=== PATIENT | female | born 1960 | race Caucasian/White ===

== ENCOUNTER 2017-11-24 13:30 | Outpatient (RCR) | payer OTHER, SELFPAY | END 2017-11-24 23:59 | LOC: PT.CARL 13:30 | PROVIDERS: Referring Provider Orthopaedic Surgery; Visit Provider Orthopaedic Surgery | DX: M54.5 Low back pain (principal) | CPT/HCPCS: 97110; 97162 ==

== ENCOUNTER 2017-11-26 11:30 | Outpatient (RCR) | payer OTHER, SELFPAY | END 2017-11-26 13:00 | LOC: PT 11:30 | PROVIDERS: Visit Provider Orthopaedic Surgery | DX: M54.5 Low back pain (principal) | CPT/HCPCS: 97110 ==

== ENCOUNTER → 2017-12-11 12:54 | Outpatient (CLI) | payer OTHER, SELFPAY ==
--- NOTE | 2017-12-11 12:58 | MR_ITS ---
MR lumbar spine wo con, MR 3-d myelogram/MRCP HISTORY: Low back pain with right-sided sciatica. Pain going down right leg ITS.REASON: LOW BACK PAIN WITH RT SCIATICA ORDERING PHYSICIAN: Arnoldo Peterson PATIENT AGE: 57 years COMPARISON: None TECHNIQUE: Standard multiplanar multiecho sequences are performed without contrast. 3-D MIP and myelographic images are also rendered and reviewed FINDINGS: There is normal alignment. The spinal cord ends at the T12-L1 level. There is mild degenerative disc disease at T11-T12. T12-L1, L1-L2, and L2-L3 have an unremarkable appearance. L3-L4: Minimal facet hypertrophic change on the right with minimal right lateral recess narrowing. L4-L5: Minimal bulging disc with mild facet and ligamentum flavum hypertrophy. There is minimal anterolisthesis of L4 on L5 of approximately 2 mm. L5-S1: Mild degenerative disc disease with disc desiccation and decrease in the disc height. Mild facet hypertrophic change with mild bilateral foraminal narrowing somewhat greater on the left. No disc herniation or canal stenosis. Incidental note is made of mild prominence of the renal pelves on both sides slightly greater on the right with a small right exophytic renal cyst. There is a small Tarlov cyst at the S2 level measuring 9 mm. IMPRESSION: Mild lumbar spondylosis as detailed at each level above. Please see above for detailed description. No disc herniation or canal stenosis or obvious neural impingement.
== END ==
PROVIDERS: Family Provider Family Medicine; PCP Nurse Practitioner Family; Visit Provider Orthopaedic Surgery
DX: M54.41 Lumbago with sciatica, right side (principal)
CPT/HCPCS: 72148; 76376

== ENCOUNTER → 2018-06-11 09:08 | Outpatient (CLI) | payer OTHER, SELFPAY ==
--- NOTE | 2018-06-11 09:09 | MM_ITS ---
MM Dig screening mamm BI w/CAD CAD Screening COMPARISON: Digital mammograms with CAD 04/17/2017 and 03/14/2016 INDICATION: There is a history of breast cancer patient maternal aunt diagnosed after menopause. TECHNIQUE: Standard CC and MLO images were obtained. R2 CAD reviewed. FINDINGS: The breasts are closed primarily of fat with very minimal scattered fibro-glandular densities in each breast. There is minimal arterial calcification right breast. There is no suspicious lesion in either breast and there are no suspicious microcalcifications. IMPRESSION: Fatty type breast parenchyma with no suspicious lesion seen BI-RADS Category: 2 Benign Finding(s) RECOMMENDED FOLLOW-UP: 1YR - 1 YEAR FOLLOW-UP (A letter has been sent to the patient regarding results of the study.)
== END ==
PROVIDERS: Family Provider Family Medicine; PCP Nurse Practitioner Family; Visit Provider Nurse Practitioner Family
DX: Z12.31 Encounter for screening mammogram for malignant neoplasm of breast (principal)
CPT/HCPCS: 77067

== ENCOUNTER → 2018-08-10 06:46 | Outpatient (CLI) | payer OTHER, SELFPAY ==
--- NOTE | 2018-08-10 06:48 | NM_ITS ---
History and Indications: Obesity, hypertension, family history, chest pain and shortness of breath Procedure: Patient received a 0.4 mg of intravenous Lexiscan, resting heart rate was 58 bpm resting blood pressure 200/120, with Lexiscan maximum heart rate achieved was 82 bpm which is less than 85% of the maximum predicted heart rate and a blood pressure was 182/106. With Lexiscan patient abdomen shortness of breath and headache. Electrocardiogram: Resting echocardiogram showed sinus bradycardia, with Lexiscan there is less than 1.[address] segment depression noted from the baseline EKG. The EKG portion of the Lexiscan Myoview is nondiagnostic. Cardiac stress and resting SPECT images: Cardiac stress and resting SPECT images were obtained using technetium 99 Myoview 31.7 mCi at stress 10.3 mCi at rest. Gated SPECT further analysis of segmental wall motion and calculation of the ejection fraction also done. Cardiac stress and rest SPECT images show uniform myocardial activity without any segmental perfusion abnormality, computer ejection fraction is 50% with no regional wall motion abnormality, right ventricle is normal size and contractility. Conclusion: 1. The EKG portion of the Lexiscan Myoview is nondiagnostic. 2. No scintigraphic evidence of reversible ischemia seen, computer derived ejection fraction is 50% with no regional wall motion abnormality, right ventricle is normal size and contractility. 3. Normal Lexiscan Myoview study.
--- NOTE | 2018-08-10 09:44 | HMH.ITSHM ---
LISINOPRIL SYNTHROID OXYCODONE CARVEDILOL
== END ==
PROVIDERS: Family Provider Family Medicine; PCP Nurse Practitioner Family; Visit Provider Internal Medicine
DX: R94.31 Abnormal electrocardiogram [ECG] [EKG] (principal); R42 Dizziness and giddiness
CPT/HCPCS: 78452; 93017; A9502; J2785

== ENCOUNTER → 2018-08-11 14:14 | Outpatient (CLI) | payer OTHER, SELFPAY ==
--- NOTE | 2018-08-11 14:15 | CA_ITS ---
PROCEDURE: 2-D M-mode and color Doppler study INDICATIONS FOR THE TEST: Chest pain+ COPD Heart Murmur+ Tobacco Smoking Palpitations+ Fatigue Syncope Edema Hypertension+Diabetes Mellitus Rheumatic Fever SOB WOLFE+Obesity Hyperlipidemia Family History HD+ Additional History abn ekg, dizziness PATIENT INFORMATION HEIGHT: 63 WEIGHT:250 GENDER: Female B/P:186/90 2-D/M-MODE INTERPRETATION: 2-D MEASUREMENTS OBSERVED VALUES IN CMS Right Ventricular Dimension (RVDd) 2.9 Interventricular Septum (Thickness)(IVsd) 1.0 Left Ventricular Internal Dimensions(LVIDd) 4.9 Left Ventricular Posterior Wall (Thickness)(LVPWd) 1.5 Aortic Root 2.7 Aortic Cusp Separation 1.6 Left Atrial Dimensions (LAD) 4.6 2D 1. Left atrium is mildly enlarged, left ventricle is normal size, there is mild qualitative concentric left ventricular hypertrophy, visually estimated ejection fraction 55% with no regional wall motion abnormality. 2. The right atrium and right ventricle are mildly enlarged with normal contractility. 3. The aortic valve is minimally thickened and fibrosed. 4. Mitral and tricuspid valve are grossly normal. 5. The pulmonic valve is poorly visualized. 6. There is small circumferential pericardial effusion noted. DOPPLER INTERROGATION: Doppler interrogation of the aortic, mitral and tricuspid valvular presence of mild mitral and tricuspid regurgitation, tricuspid regurgitation jet velocity is insufficient for acquisition of the right ventricular systolic pressure, grade 1 diastolic dysfunction seen without tissue Doppler evidence of raised left atrial pressure. CONCLUSION: 1. Mildly enlarged left atrium, normal left ventricular size, mild concentric left ventricular hypertrophy, visually estimated ejection fraction 55% with no regional wall motion abnormality, grade 1 diastolic dysfunction seen without tissue Doppler evidence of raised left atrial pressure. 2. Mildly enlarged right ventricle with normal contractility. 3. Mild mitral and tricuspid regurgitation 4. Small circumferential pericardial effusion noted.
== END ==
PROVIDERS: Family Provider Family Medicine; PCP Nurse Practitioner Family; Visit Provider Internal Medicine
DX: R42 Dizziness and giddiness (principal)
CPT/HCPCS: 93306

== ENCOUNTER → 2019-03-07 15:11 | Outpatient (CLI) | payer OTHER, SELFPAY ==
[2019-03-07 15:19] LABS: Microscopic, Urine URINE MICROSCOPIC (MICROSCOPIC)
--- NOTE | 2019-03-07 15:30 | US_ITS ---
US Kidney CLINICAL INDICATION: ITS.REASON: NEPHROLITHIASIS ORDERING PHYSICIAN: Diego Jones PATIENT AGE: 58 years Comparison: None FINDINGS: The right kidney is 9 x 4 x 6 cm. No hydronephrosis. There is mild cortical thinning. A 1 cm cyst is present in the lower pole. There is minimal amount of perinephric fluid. The left kidney is 9 x 5 x 6 cm and has an unremarkable appearance. No hydronephrosis. IMPRESSION: Mild cortical thinning of the right kidney with small right renal cyst and minimal amount of perinephric fluid on the right No hydronephrosis
[2019-03-07 15:32] LABS: Appearance,Urine SL CLOUDY (Clear); Bilirubin,Urine Negative (Negative); Blood, Urine Negative (Negative); Color,Urine YELLOW (Yellow); Glucose,Urine (UA) Negative (Negative); Ketones,Urine Negative (Negative); Leukocyte Esterase,Urine Negative (Negative); Nitrate,Urine Negative (Negative); Protein,Urine Negative (Negative); Specific Gravity, Urine 1.015 (1.005-1.030); Urobilinogen,Urine 0.2 EU/dl (0.2)
[2019-03-07 15:58] LABS: Bacteria,Urine 2+ /lpf; Squamous Epithelial Cell,Urine 20-50 #/hpf (0-5)
[2019-03-07 17:28] LABS: Albumin Level 4.1 gm/dL (3.4-5.0); Anion Gap 16.3 mEq/L (5-15); Blood Urea Nitrogen 18 mg/dL (7-18); Calcium 9.4 mg/dL (8.5-10.1); Carbon Dioxide 23 mmol/L (21.0-32.0); Chloride 104 mmol/L (98-107); Creatinine,Serum 1.29 mg/dL (0.55-1.02); Estimated Glomerular Filt Rate 42 ml/min (>60); GFR (African American) 51 ML/MIN (>60); Glucose 86 mg/dL (74-106); Phosphorous 3.7 mg/dL (2.4-4.9); Potassium 4.3 mmoL/L (3.5-5.1); Sodium 139 mmol/L (136-145); Uric Acid 5.1 mg/dL (2.6-7.2)
[2019-03-09 12:44] LABS: Vitamin D 25 Hydroxy 18.9 ng/mL (30.0-100.0)
[2019-03-09 16:08] LABS: Parathyroid Hormone Intact 106 pg/mL (15-65)
== END ==
PROVIDERS: PCP Family Medicine; Visit Provider Internal Medicine Nephrology
DX: N20.0 Calculus of kidney (principal); N18.3 Chronic kidney disease, stage 3 (moderate); N39.0 Urinary tract infection, site not specified
CPT/HCPCS: 36415; 76770; 80069; 81001; 82652; 83970; 84550; 87086

== ENCOUNTER → 2019-07-15 12:18 | Outpatient (CLI) | payer OTHER, SELFPAY ==
[2019-07-15 12:21] LABS: Microscopic, Urine URINE MICROSCOPIC (MICROSCOPIC)
[2019-07-15 12:39] LABS: Basophils % 0.4 % (0.1-2.0); Eosinophils # 0.1 K/mm3 (0.0-0.4); Eosinophils % 1.8 % (0.1-12.0); Hematocrit 38.9 % (37.0-47.0); Hemoglobin 12.5 g/dL (12.2-16.2); Lymphocytes # 2.5 K/mm3 (0.7-4.5); Lymphocytes % 37.7 % (10-50); Mean Corpuscular HGB Conc 32.2 g/dL (31.8-35.4); Mean Corpuscular Hemoglobin 28.8 pg (27.0-31.2); Mean Corpuscular Volume 89.3 fl (81-99); Mean Platelet Volume 8.1 fl (7.4-10.4); Monocytes # 0.5 K/mm3 (0.1-1.0); Monocytes % 8.1 % (1.7-9.3); Neutrophils # 3.4 K/mm3 (1.8-7.8); Platelet Count 329 K/mm3 (142-424); Red Blood Count 4.35 M/mm3 (4.20-5.40); Red Cell Distribution Width 14.4 % (11.5-17.5); White Blood Count 6.5 K/mm3 (4.8-10.8)
[2019-07-15 15:07] LABS: Albumin Level 3.8 gm/dL (3.4-5.0); Anion Gap 13.3 mEq/L (5-15); Blood Urea Nitrogen 11 mg/dL (7-18); Calcium 9.2 mg/dL (8.5-10.1); Carbon Dioxide 24 mmol/L (21.0-32.0); Chloride 106 mmol/L (98-107); Creatinine,Serum 1.59 mg/dL (0.55-1.02); Estimated Glomerular Filt Rate 33 ml/min (>60); GFR (African American) 40 ML/MIN (>60); Glucose 97 mg/dL (74-106); Potassium 4.3 mmoL/L (3.5-5.1); Sodium 139 mmol/L (136-145)
[2019-07-15 15:29] LABS: Appearance,Urine CLEAR (Clear); Bilirubin,Urine Negative (Negative); Blood, Urine Negative (Negative); Color,Urine YELLOW (Yellow); Glucose,Urine (UA) Negative (Negative); Ketones,Urine Negative (Negative); Leukocyte Esterase,Urine Negative (Negative); Nitrate,Urine Negative (Negative); PH,Urine 5.5 (5.0-8.5); Protein,Urine Negative (Negative); Specific Gravity, Urine >= 1.030 (1.005-1.030); Urobilinogen,Urine 0.2 EU/dl (0.2)
[2019-07-15 15:57] LABS: Creatinine,Urine Random 323 mg/dL (20-320); Total Protein,Urine Random 26.1 mg/dL (0.0-11.9)
[2019-07-15 16:30] LABS: Bacteria,Urine Trace /lpf; Squamous Epithelial Cell,Urine Occasional #/hpf (0-5)
== END ==
PROVIDERS: Visit Provider Hospitalist
DX: N18.3 Chronic kidney disease, stage 3 (moderate) (principal)
CPT/HCPCS: 36415; 80069; 81001; 82570; 84155; 85025

== ENCOUNTER → 2019-07-26 10:07 | Outpatient (CLI) | payer OTHER, SELFPAY ==
--- NOTE | 2019-07-26 10:11 | MM_ITS ---
PROCEDURE: MM DIG SCREENING MAMM BI W/CAD Patient Age:58Y CLINICAL INDICATION: SCREENING Routine screening mammogram. 58-year-old. No hormones but no complaints Family history: Paternal aunt with breast cancer COMPARISON: [facility] DIG MAMM-SCREEN NEVA from 03/14/2016 [facility] DIG MAMM-SCREEN NEVA W/CAD from 04/17/2017 [facility] MM Dig screening mamm BI w/CAD from 06/11/2018 TECHNIQUE: Standard CC and MLO images were obtained. R2 CAD reviewed. Additional cc and MLO views performed in order to image entire breast bilateral FINDINGS: Low-density. Generalized fatty replacement but no new areas of concern. No dominant mass. No new suspicious mass. No suspicious calcifications. Minimal vascular calcifications developing bilateral IMPRESSION: Stable bilateral mammogram . Bilateral follow-up 1 year recommended . Low-density breast BI-RAD Category: 1 Negative FOLLOW-UP: 1YR 1 Year Follow-up (A letter has been sent to the patient regarding results of the study.) Dictated by: Gabe Medina MD 07/31/2019 21:07 Electronically signed by Gabe Medina MD in [place] 07/31/2019 21:07
== END ==
PROVIDERS: PCP Family Medicine; Visit Provider Nurse Practitioner Family
DX: Z12.31 Encounter for screening mammogram for malignant neoplasm of breast (principal)
CPT/HCPCS: 77067

== ENCOUNTER → 2019-08-18 10:51 | Outpatient (CLI) | payer OTHER, SELFPAY ==
[2019-08-18 10:53] LABS: Microscopic, Urine URINE MICROSCOPIC (MICROSCOPIC)
[2019-08-18 11:28] LABS: Appearance,Urine CLEAR (Clear); Bilirubin,Urine Negative (Negative); Blood, Urine Negative (Negative); Color,Urine YELLOW (Yellow); Glucose,Urine (UA) Negative (Negative); Ketones,Urine Negative (Negative); Leukocyte Esterase,Urine 1+ (Negative); Nitrate,Urine Negative (Negative); Protein,Urine Negative (Negative); Specific Gravity, Urine 1.015 (1.005-1.030); Urobilinogen,Urine 0.2 EU/dl (0.2)
[2019-08-18 11:56] LABS: Bacteria,Urine Trace /lpf
[2019-08-18 12:26] LABS: Albumin Level 3.6 gm/dL (3.4-5.0); Anion Gap 13.6 mEq/L (5-15); Blood Urea Nitrogen 12 mg/dL (7-18); Calcium 9.2 mg/dL (8.5-10.1); Carbon Dioxide 25 mmol/L (21.0-32.0); Chloride 105 mmol/L (98-107); Creatinine,Serum 1.17 mg/dL (0.55-1.02); Estimated Glomerular Filt Rate 47 ml/min (>60); GFR (African American) 57 ML/MIN (>60); Glucose 84 mg/dL (74-106); Phosphorous 3.9 mg/dL (2.4-4.9); Potassium 4.6 mmoL/L (3.5-5.1); Sodium 139 mmol/L (136-145)
== END ==
PROVIDERS: Visit Provider Hospitalist
DX: N17.9 Acute kidney failure, unspecified (principal)
CPT/HCPCS: 36415; 80069; 81001; 87086

== ENCOUNTER → 2020-06-01 10:04 | Outpatient (CLI) | payer OTHER, SELFPAY ==
[2020-06-01 10:07] LABS: Microscopic, Urine URINE MICROSCOPIC (MICROSCOPIC)
[2020-06-01 14:30] LABS: Basophils % 0.6 % (0.1-2.0); Eosinophils # 0.2 K/mm3 (0.0-0.4); Eosinophils % 2.7 % (0.1-12.0); Hematocrit 37.4 % (37.0-47.0); Hemoglobin 12.5 g/dL (12.2-16.2); Lymphocytes # 2.7 K/mm3 (0.7-4.5); Lymphocytes % 42.7 % (10-50); Mean Corpuscular HGB Conc 33.4 g/dL (31.8-35.4); Mean Corpuscular Hemoglobin 29.9 pg (27.0-31.2); Mean Corpuscular Volume 89.4 fl (81-99); Mean Platelet Volume 9.3 fl (7.4-10.4); Monocytes # 0.5 K/mm3 (0.1-1.0); Monocytes % 7.6 % (1.7-9.3); Neutrophils # 2.9 K/mm3 (1.8-7.8); Neutrophils % 46.3 % (37.0-80.0); Platelet Count 292 K/mm3 (142-424); Red Blood Count 4.18 M/mm3 (4.20-5.40); Red Cell Distribution Width 14.2 % (11.5-17.5); White Blood Count 6.2 K/mm3 (4.8-10.8)
[2020-06-01 14:36] LABS: Appearance,Urine CLEAR (Clear); Bilirubin,Urine Negative (Negative); Blood, Urine Negative (Negative); Color,Urine YELLOW (Yellow); Glucose,Urine (UA) Negative (Negative); Ketones,Urine Negative (Negative); Leukocyte Esterase,Urine TRACE (Negative); Nitrate,Urine Negative (Negative); PH,Urine 5.5 (5.0-8.5); Protein,Urine Negative (Negative); Specific Gravity, Urine 1.025 (1.005-1.030)
[2020-06-01 14:43] LABS: RBC,Urine Occasional #/hpf (0-3)
[2020-06-01 14:44] LABS: Albumin Level 4.1 g/dl (3.5-5.0); Anion Gap 15.2 mEq/L (5-15); Blood Urea Nitrogen 11 mg/dl (7-17); Calcium 9.6 mg/dl (8.4-10.2); Carbon Dioxide 23 mmol/L (22.0-30.0); Chloride 104 mmol/L (98-107); Estimated Glomerular Filt Rate 51 ml/min (>60); GFR (African American) 62 ML/MIN (>60); Glucose 104 mg/dl (74-100); Phosphorous 3.8 mg/dl (2.5-4.5); Potassium 4.2 mmoL/L (3.5-5.1); Sodium 138 mmol/L (136-145)
== END ==
PROVIDERS: Visit Provider Internal Medicine Nephrology
DX: N17.9 Acute kidney failure, unspecified (principal)
CPT/HCPCS: 36415; 80069; 81001; 85025

== ENCOUNTER → 2020-09-26 09:50 | Outpatient (CLI) | payer OTHER, SELFPAY ==
--- NOTE | 2020-09-26 09:52 | MM_ITS ---
PROCEDURE: MM DIG SCREENING MAMM BI W/CAD Digital Breast Tomosynthesis Included CLINICAL INDICATION: SCREENING There is a history of breast cancer in the patient's paternal aunt diagnosed after menopause. COMPARISON: MG [facility] DIG MAMM-SCREEN NEVA W/CAD from 04/17/2017 MG [facility] MM Dig screening mamm BI w/CAD from 06/11/2018 MG MM DIG SCREENING MAMM BI W/CAD from 07/26/2019 TECHNIQUE: Standard CC and MLO images and 3D Tomosynthesis was obtained. R2 CAD reviewed. FINDINGS: The breasts are composed almost entirely of fat with minimal scattered fibroglandular densities throughout each breast. There is faint arterial calcification in each breast. There is no suspicious lesion in either breast and no suspicious microcalcifications. IMPRESSION: Low-density fatty type breast parenchyma with no suspicious lesions seen BI-RAD Category: 2 Benign Finding(s) FOLLOW-UP: 1YR 1 Year Follow-up (A letter has been sent to the patient regarding results of the study.) Dictated by: Dr. Srikanth Palacios MD 09/30/2020 09:56 Dr. Srikanth Palacios MD in [place] 09/30/2020 09:56
== END ==
PROVIDERS: PCP Nurse Practitioner Family; Visit Provider Nurse Practitioner Family
DX: Z12.31 Encounter for screening mammogram for malignant neoplasm of breast (principal)
CPT/HCPCS: 77063; 77067

== ENCOUNTER 2021-01-19 19:31 | Emergency (ER) | payer OTHER, SELFPAY ==
[2021-01-19 19:49] VITALS: BP 155/108; PULSE 75; RESP 19; TEMP 36.7; O2SAT 98; BMI 44.6
--- NOTE | 2021-01-19 19:57 | CT_ITS ---
PROCEDURE: CT ABDOMEN PELVIS W CON CLINICAL INDICATION: abd pain Left lower quadrant pain COMPARISON: CT ABDPELW/O CT ABD PELVIS W/O CONTRAST from 05/16/2015 TECHNIQUE: IV Contrast: 75ML Isovue 370 Oral Contrast None Axial images obtained with sagittal and coronal reformats. All CT scans at the facility use one or more dose reduction, viz: automated exposure control, ma/kV adjustment per patient size (including targeted exams where dose is matched to indication, i.e. head), or iterative reconstruction technique. FINDINGS: LOWER THORAX: Small pericardial effusion noted with thickening of the pericardium measuring up to 2 cm in thickness. ABDOMEN & PELVIS: Postsurgical changes at the GE junction with small hiatal hernia. Prior gastric sling surgery. Prior cholecystectomy with biliary ectasia. There is a 3 mm nonobstructing stone in the mid upper pole of the left kidney. Mild prominence of the right renal pelvis. No ureteral calculi parent. 1.5 cm cyst is present along the inferior aspect of the spleen. The liver adrenal glands and pancreas have an unremarkable appearance. No intestinal obstruction or free air. Small umbilical hernia is noted containing fat there has been a prior hysterectomy. No evidence of appendicitis. There is colonic diverticulosis. There is mild thickening of the distal descending colon with minimal stranding of the pericolic fat consistent with mild diverticulitis. No evidence of abscess or free air. Degenerative changes of the thoracic and lumbar spine. IMPRESSION: 1. Non complicated diverticulitis of the junction of the descending and sigmoid colon with colonic diverticulosis 2. Left nephrolithiasis 3. Pericardial effusion Dictated by: Nimesh Chapin MD 01/20/2021 08:42 Nimesh Chapin MD in [place] 01/20/2021 08:42
[2021-01-19 20:03] LABS: Microscopic, Urine URINE MICROSCOPIC (MICROSCOPIC)
[2021-01-19 20:09] LABS: Appearance,Urine SL CLOUDY (Clear); Blood, Urine 2+ (Negative); Color,Urine ORANGE (Yellow); Glucose,Urine (UA) TRACE (Negative); Ketones,Urine TRACE (Negative); Leukocyte Esterase,Urine 1+ (Negative); Nitrate,Urine POSITIVE (Negative); Protein,Urine 2+ (Negative); Specific Gravity, Urine >= 1.030 (1.005-1.030); Urobilinogen,Urine >=8.0 EU/dl (0.2)
[2021-01-19 20:11] LABS: Basophils # 0.1 K/mm3 (0-0.2); Basophils % 0.7 % (0.1-2.0); Eosinophils # 0.1 K/mm3 (0.0-0.4); Eosinophils % 1.6 % (0.1-12.0); Hematocrit 35.9 % (37.0-47.0); Hemoglobin 11.6 g/dL (12.2-16.2); Lymphocytes # 2.8 K/mm3 (0.7-4.5); Mean Corpuscular HGB Conc 32.4 g/dL (31.8-35.4); Mean Corpuscular Hemoglobin 28.4 pg (27.0-31.2); Mean Corpuscular Volume 87.9 fl (81-99); Mean Platelet Volume 8.7 fl (7.4-10.4); Monocytes # 0.6 K/mm3 (0.1-1.0); Monocytes % 8.1 % (1.7-9.3); Neutrophils # 3.8 K/mm3 (1.8-7.8); Neutrophils % 51.5 % (37.0-80.0); Platelet Count 335 K/mm3 (142-424); Red Blood Count 4.08 M/mm3 (4.20-5.40); Red Cell Distribution Width 14.6 % (11.5-17.5); White Blood Count 7.4 K/mm3 (4.8-10.8)
[2021-01-19 20:16] LABS: Bilirubin,Urine 1+ (Negative)
[2021-01-19 20:18] LABS: Mucus,Urine Trace /lpf
[2021-01-19 20:29] LABS: Amylase 117 U/L (30-110); Anion Gap 14.3 mEq/L (5-15); Blood Urea Nitrogen 19 mg/dl (7-17); Carbon Dioxide 23 mmol/L (22.0-30.0); Chloride 108 mmol/L (98-107); Creatinine Clearance Estimated 40 mL/min (50-200); Estimated Glomerular Filt Rate 42 ml/min (>60); GFR (African American) 51 ML/MIN (>60); Glucose 119 mg/dl (74-100); Lipase 187 U/L (23-300); Potassium 4.3 mmoL/L (3.5-5.1); Sodium 141 mmol/L (136-145)
--- NOTE | 2021-01-19 20:31 | HMH.EDGENADL ---
ED Disposition Clinical Impression: Diverticulitis Disposition: Home, Self-Care Condition on Discharge: Good Instructions: Acute Abdominal Pain Referrals: Carlita Rockwell APRN [Primary Care Provider] - - Critical Care Critical Care Time: No Attestation: On 01/19/21, the high probability of a clinically significant, sudden or life threatening deterioration of the following system(s) required my full and direct attention, intervention and personal management. The time I documented below is in addition to time spent performing reported procedures but includes the following listed in this critical care notation. Medical Decision Making - Medical Records Medical records reviewed: Yes: I reviewed the patient's medical records. - Franco Inquiry Pt receiving controlled substance: No Vital Signs: 01/19/21 19:49 Temperature 98.0 F Temperature Source Oral Pulse Rate [Right Brachial] 75 Respiratory Rate 19 Blood Pressure [Right Arm] 155/108 H Blood Pressure Mean [Right Arm] 123 Blood Pressure Source [Right Arm] Automatic Cuff Blood Pressure Position [Right Arm] Sitting 02 Sat by Pulse Oximetry 98 Oxygen Delivery Method Room Air - Lab Data Lab results reviewed: Yes: I reviewed the patient's lab results. Lab Results 01/19/21 19:15: Urine Color [place], Urine Appearance Sl cloudy, Urine pH 5.0, Ur Specific [place] >= 1.030, Urine Protein 2+, Urine Glucose (UA) Trace, Urine Ketones Trace, Urine Blood 2+, Urine Nitrate Positive, Urine Bilirubin 1+ A, Urine Urobilinogen >=8.0, Ur Leukocyte Esterase 1+ A, Urine WBC 10-20, Ur Squamous Epith Cells 10-20, Urine Mucus Trace 01/19/21 20:00: WBC 7.4, RBC 4.08 L, Hgb 11.6 L, Hct 35.9 L, MCV 87.9, MCH 28.4, MCHC 32.4, RDW 14.6, Plt Count 335, MPV 8.7, Neut % (Auto) 51.5, Lymph % (Auto) 38.0, [place] % (Auto) 8.1, Eos % (Auto) 1.6, Baso % (Auto) 0.7, Neut # (Auto) 3.8, Lymph # (Auto) 2.8, [place] # (Auto) 0.6, Eos # (Auto) 0.1, Baso # (Auto) 0.1 01/19/21 20:00: Sodium 141, Potassium 4.3, Chloride 108 H, Carbon Dioxide 23, Anion Gap 14.3, BUN 19 H, Creatinine 1.30 H, Estimated Creat Clear 40, Estimated GFR 42 L, Est GFR ( Amer) 51 L, Glucose 119 H, Calcium 10.0, C-Reactive Protein 7.3 H, Amylase 117 H, Lipase 187 01/19/21 20:00: ESR > 140 H 01/19/21 20:00: NT-Pro-B Natriuret Pep 339 H 01/19/21 20:00: Procalcitonin 0.055 Result diagrams: 01/19/21 20:00 01/19/21 20:00 Orders (Tests/Meds): ED MEDICATIONS Generic Name Dose Route Start Last Admin Trade Name Freq PRN Reason Stop Dose Admin Sodium Chloride 1,000 mls @ 999 mls/hr 01/19/21 20:00 01/19/21 20:04 Sod Chlor 0.9% 1000ml Bag IV 01/19/21 21:00 999 mls/hr .Q1H1M BRITTA Administration Discontinued Medications Generic Name Dose Route Start Last Admin Trade Name Freq PRN Reason Stop Dose Admin Iopamidol 75 ml 01/19/21 21:07 01/19/21 21:07 Iopamidol-370 (76%);100ml Bottle IV 01/19/21 21:08 75 ml ONCE ONE Administration Ketorolac Tromethamine 30 mg 01/19/21 19:58 01/19/21 20:04 Ketorolac 30mg/Ml Vial IV 01/19/21 19:59 30 mg ONCE ONE Administration Sodium Chloride 10 ml 01/19/21 21:07 01/19/21 21:07 Sodium Chloride 0.9% 10ml Syr (Rad Only) IV 01/19/21 21:08 10 ml ONCE ONE Administration ORDERS Category Date Time Status CT abdomen pelvis w con Stat Cat Scan 01/19/21 19:57 Taken Urine Culture Stat Micro 01/19/21 19:15 Received Medical Decision Narrative: 60-year-old female multiple past medical history presenting for abdominal pain follow-up for quadrant, patient concerned this could be diverticulitis, pain has been worsening, symptoms been present for the past 2 months. Patient is reasonable antibiotics, ciprofloxacin. Patient denies any diarrhea, medications or melena. Abdominal exam is significant for mild tenderness palpation left lower quadrant, no peritonitis, patient received IV fluids 1 L, had CT scan ordered of abdomen pelvis IV contrast. Labs nonactiona
[2021-01-19 20:36] LABS: C-Reactive Protein 7.3 mg/L (0-4)
[2021-01-19 20:43] LABS: NT Pro Brain Natriuretic Pep. 339 pg/mL (0-125)
[2021-01-19 20:45] LABS: Erythrocyte Sedimentation Rate > 140 mm/hr (0-30)
[2021-01-19 20:51] LABS: Procalcitonin 0.055 ng/mL (0.0-2.0)
[2021-01-19 22:24] VITALS: BP 121/73; PULSE 79; RESP 16; TEMP 36.7; O2SAT 98
== END 2021-01-19 22:27 | disposition home or self-care (01) ==
PROVIDERS: Emergency Provider Emergency Medicine; PCP Nurse Practitioner Family
DX: K57.92 Diverticulitis of intestine, part unspecified, without perforation or abscess without bleeding (principal); N39.0 Urinary tract infection, site not specified; I10 Essential (primary) hypertension; E03.9 Hypothyroidism, unspecified; I25.10 Atherosclerotic heart disease of native coronary artery without angina pectoris; E78.5 Hyperlipidemia, unspecified; Z87.442 Personal history of urinary calculi; Z88.6 Allergy status to analgesic agent; Z79.899 Other long term (current) drug therapy
CPT/HCPCS: 74177; 80048; 81001; 82150; 83690; 83880; 84145; 85025; 85651; 86140; 87086; 99282; Q9967

== ENCOUNTER 2021-01-24 11:50 | Emergency (ER) | payer OTHER, SELFPAY ==
[2021-01-24 11:51] VITALS: BP 126/91; PULSE 90; RESP 18; TEMP 36.7; O2SAT 98; BMI 44.6
--- NOTE | 2021-01-24 12:07 | XR_ITS ---
PROCEDURE: XR CHEST PORTABLE CLINICAL HISTORY: cough COMPARISON: CR CXR CHEST(2 VIEWS-NOT PORTABLE) from 11/17/2014 CR CXR2V XR chest 2V from 07/02/[address] ABDOMEN PELVIS W CON from 01/19/2021 FINDINGS: Mild cardiomegaly without failure. The lungs are clear without infiltrates, suspicious nodules, or pleural effusions. There are low lung volumes. Degenerative changes are present in the left shoulder with postsurgical changes also in the left shoulder. IMPRESSION: No acute findings. Dictated by: Nimesh Chapin MD 01/24/2021 13:45 Nimesh Chapin MD in [place] 01/24/2021 13:45
[2021-01-24 12:15] LABS: Chloride 109 mmol/L (98-107); Potassium 4.2 mmoL/L (3.5-5.1); Sodium 142 mmol/L (136-145)
[2021-01-24 12:17] LABS: Basophils # 0.1 K/mm3 (0-0.2); Basophils % 0.9 % (0.1-2.0); Blood Urea Nitrogen 21 mg/dl (7-17); Creatinine Clearance Estimated 40 mL/min (50-200); Eosinophils # 0.2 K/mm3 (0.0-0.4); Eosinophils % 2.2 % (0.1-12.0); Estimated Glomerular Filt Rate 42 ml/min (>60); GFR (African American) 51 ML/MIN (>60); Hematocrit 37.8 % (37.0-47.0); Hemoglobin 11.8 g/dL (12.2-16.2); Lymphocytes # 2.6 K/mm3 (0.7-4.5); Lymphocytes % 35.3 % (10-50); Mean Corpuscular HGB Conc 31.2 g/dL (31.8-35.4); Mean Corpuscular Hemoglobin 28.4 pg (27.0-31.2); Mean Platelet Volume 8.5 fl (7.4-10.4); Monocytes # 0.5 K/mm3 (0.1-1.0); Monocytes % 7.3 % (1.7-9.3); Neutrophils # 3.9 K/mm3 (1.8-7.8); Neutrophils % 54.3 % (37.0-80.0); Platelet Count 351 K/mm3 (142-424); Red Blood Count 4.15 M/mm3 (4.20-5.40); Red Cell Distribution Width 14.4 % (11.5-17.5); White Blood Count 7.2 K/mm3 (4.8-10.8)
[2021-01-24 12:18] LABS: Alanine Aminotransferase 29 U/L (12-78); Albumin Level 4.5 g/dl (3.5-5.0); Alkaline Phosphatase 113 U/L (38-126); Anion Gap 11.2 mEq/L (5-15); Aspartate Amino Transferase 37 U/L (14-36); Bilirubin,Total 0.7 mg/dl (0.2-1.3); Carbon Dioxide 26 mmol/L (22.0-30.0); Globulin 4.3 g/dL (1.3-3.2); Glucose 119 mg/dl (74-100); Total Protein,Serum 8.8 g/dl (6.3-8.2)
[2021-01-24 12:23] LABS: Microscopic, Urine URINE MICROSCOPIC (MICROSCOPIC)
[2021-01-24 12:25] LABS: Appearance,Urine CLEAR (Clear); Blood, Urine 2+ (Negative); Color,Urine ORANGE (Yellow); Glucose,Urine (UA) 2+ (Negative); Ketones,Urine 1+ (Negative); Leukocyte Esterase,Urine TRACE (Negative); Nitrate,Urine POSITIVE (Negative); Protein,Urine 2+ (Negative); Specific Gravity, Urine >= 1.030 (1.005-1.030); Urobilinogen,Urine >=8.0 EU/dl (0.2)
[2021-01-24 12:26] LABS: Bilirubin,Urine 3+ (Negative)
[2021-01-24 12:27] LABS: NT Pro Brain Natriuretic Pep. 403 pg/mL (0-125)
[2021-01-24 12:38] LABS: Troponin I < 0.01 ng/ml (0.00-0.034)
[2021-01-24 12:40] LABS: Bacteria,Urine 2+ /lpf; RBC,Urine 20-50 #/hpf (0-3); Squamous Epithelial Cell,Urine 20-50 #/hpf (0-5)
[2021-01-24 13:31] VITALS: BP 130/77; PULSE 71; O2SAT 98
--- NOTE | 2021-01-24 14:29 | HMH.EDEXTP ---
ED Disposition Clinical Impression: Dependent edema, Acute UTI Disposition: Home, Self-Care Condition on Discharge: Good Instructions: DI for Dependent Edema Prescriptions: cephALEXin [Cephalexin 500mg Tab] 500 mg PO Q12H 7 Days #14 tab Transmission Status: Pending to [id number] Referrals: Carlita Rockwell APRN [Primary Care Provider] - - Critical Care Critical Care Time: No Attestation: On 01/24/21, the high probability of a clinically significant, sudden or life threatening deterioration of the following system(s) required my full and direct attention, intervention and personal management. The time I documented below is in addition to time spent performing reported procedures but includes the following listed in this critical care notation. Medical Decision Making - Medical Records Medical records reviewed: Yes: I reviewed the patient's medical records. - Franco Inquiry Pt receiving controlled substance: No Vital Signs: 01/24/21 11:51 01/24/21 13:31 Temperature 98.1 F Temperature Source Oral Pulse Rate [Radial] 90 71 Respiratory Rate 18 Blood Pressure [Right Arm] 126/91 H 130/77 Blood Pressure Mean [Right Arm] 102 94 Blood Pressure Source [Right Arm] Automatic Cuff Blood Pressure Position [Right Arm] Sitting Sitting 02 Sat by Pulse Oximetry 98 98 Oxygen Delivery Method Room Air Room Air - Lab Data Lab Results 01/24/21 11:57: Urine Color [place], Urine Appearance Clear, Urine pH 5.0, Ur Specific [place] >= 1.030, Urine Protein 2+, Urine Glucose (UA) 2+, Urine Ketones 1+, Urine Blood 2+, Urine Nitrate Positive, Urine Bilirubin 3+ A, Urine Urobilinogen >=8.0, Ur Leukocyte Esterase Trace, Urine RBC 20-50, Urine WBC 5-10, Ur Squamous Epith Cells 20-50, Urine Bacteria 2+ 01/24/21 12:00: WBC 7.2, RBC 4.15 L, Hgb 11.8 L, Hct 37.8, MCV 91.0, MCH 28.4, MCHC 31.2 L, RDW 14.4, Plt Count 351, MPV 8.5, Neut % (Auto) 54.3, Lymph % (Auto) 35.3, [place] % (Auto) 7.3, Eos % (Auto) 2.2, Baso % (Auto) 0.9, Neut # (Auto) 3.9, Lymph # (Auto) 2.6, [place] # (Auto) 0.5, Eos # (Auto) 0.2, Baso # (Auto) 0.1 01/24/21 12:00: Sodium 142, Potassium 4.2, Chloride 109 H, Carbon Dioxide 26, Anion Gap 11.2, BUN 21 H, Creatinine 1.30 H, Estimated Creat Clear 40, Estimated GFR 42 L, Est GFR ( Amer) 51 L, Glucose 119 H, Calcium 10.0, Total Bilirubin 0.7, AST 37 H, ALT 29, Alkaline Phosphatase 113, Troponin I < 0.01, NT-Pro-B Natriuret Pep 403 H, Total Protein 8.8 H, Albumin 4.5, Globulin 4.3 H, Albumin/Globulin Ratio 1.0 L Result diagrams: 01/24/21 12:00 01/24/21 12:00 Orders (Tests/Meds): ORDERS Category Date Time Status Troponin I Q3H Lab 01/24/21 15:15 Ordered Troponin I Q3H Lab 01/24/21 18:15 Ordered Urine Culture Stat Micro 01/24/21 11:57 Received - Radiology Data #1 Image(s): Chest Image Reviewed: Yes I reviewed the patient's radiology results, Yes I reviewed the patient's radiology image, Yes I have reviewed radiologist's interpretation Preliminary Findings: Normal/NAD - Reevaluation(s) Time: 14:32 Reevaluation #1: On reevaluation, patient is feeling better. She has no significant evidence of greatly elevated BNP. Chest x-ray is unremarkable. I will provide the patient with a short course of Lasix as well as antibiotic for UTI. She needs to follow-up with her PCP in 48 hours. Given strict return precautions. Verbalized understanding. Medical Decision Narrative: 60-year-old female presenting with bilateral pedal edema. I do believe patient symptoms are consistent with dependent edema. There is no significant tenderness to palpation. Work-up initiated. Extremity Problem HPI - General Chief complaint: Extremity Problem,Nontraumatic Stated complaint: feet swelling Time Seen by Provider: 01/24/21 11:55 Mode of Arrival: Ambulatory Limitations: No Limitations Description of Symptoms (Recalled from ER Triage Doc. by RN): to ed per pvt car with c/o feet and ankle swelling for a
[2021-01-24 14:39] VITALS: BP 140/102; PULSE 76; RESP 20; TEMP 36.7; O2SAT 96
[2021-01-24 14:40] VITALS: BP 150/87; PULSE 78; RESP 16; TEMP 36.6; O2SAT 98
== END 2021-01-24 14:40 | disposition home or self-care (01) ==
PROVIDERS: Emergency Provider Emergency Medicine; PCP Nurse Practitioner Family
DX: R60.0 Localized edema (principal); N30.00 Acute cystitis without hematuria; I10 Essential (primary) hypertension; E78.5 Hyperlipidemia, unspecified; E03.9 Hypothyroidism, unspecified; Z87.442 Personal history of urinary calculi
CPT/HCPCS: 71045; 80053; 81001; 83880; 84484; 85025; 87086; 87088; 87186; 99283

== ENCOUNTER → 2021-01-29 15:52 | Outpatient (CLI) | payer OTHER, SELFPAY | PROVIDERS: Visit Provider Urology | DX: N39.0 Urinary tract infection, site not specified (principal) | CPT/HCPCS: 87086 ==

== ENCOUNTER → 2021-02-01 09:09 | Outpatient (CLI) | payer OTHER, SELFPAY ==
--- NOTE | 2021-02-01 09:10 | CA_ITS ---
APPROVED REPORT EXAM: Comprehensive 2D, Doppler, and color-flow Echocardiogram International Representative: Caridad Shah RVT Ht: 5 ft 5 in Wt: 263lbs BSA: 2.22 BP: 136/78 mmHg Indications: SOA,FATIGUE,EDEMA,HTN,HLD,ABN EKG,CAD,OBESITY 2D Dimensions LVOT 2.20 cm (M/F) 1.5-2.5 M-Mode Dimensions RVDd 4.09 cm (0.9-2.6) LA Diam 4.68 cm (1.9-4.0) LVDd 4.93 cm (3.5-5.7) Ao Diam 3.44 cm (2.0-3.7) LVDs 3.24 cm (3.5-5.7) IVSd 1.22 cm (0.6-1.1) PWd 1.13 cm (0.6-1.1) EF (Teich) 63.10% FS 34.30% EDV (Teich) 114.40 mL ESV (Teich) 42.20 mL LV Diastology E Decel Time 150.00 (160-240 msec) E/A Ratio 1.2 MED E' 5.10 (< 7 cm/sec) E'/MED E' Ratio 13.63 (>14) LAT E' 8.40 (<10 cm/sec) E/LAT E' Ratio 8.27 (>14) Mitral Valve MV E Max Júnior. 69.00 (40-130 cm/s) MV A Velocity 58.00 (40-130 cm/s) E/A Ratio 1.19 MV Decel. Time 150.00 (160-240 ms) MV PHT 44.00 ms Pulmonary Valve PV Peak Velocity 92.00 (50-150 cm/s) Tricuspid Valve TR P. Velocity 261.00 cm/s RAP Estimate 10.00 mmHg RVSP 37.20 mmHg Left Ventricle Left atrium is mildly enlarged, left ventricle is normal size, mild concentric left ventricular hypertrophy, visually estimated ejection fraction 55% with no regional wall motion abnormality, diastolic parameters are inconclusive. Right Ventricle Right atrium and right ventricle are normal size and contractility. Aortic Valve Aortic valve is minimally thickened and fibrosed, there is no aortic stenosis or aortic insufficiency. Mitral Valve Mitral valve is grossly normal, there is trace mitral regurgitation. Tricuspid Valve Tricuspid valve grossly normal, there is trace tricuspid regurgitation, tricuspid regurgitation jet velocity is inadequate for calculation of the right ventricular systolic pressure. Pulmonic Valve Pulmonic valve is poorly visualized. Great Vessels Aortic root is normal size. Pericardium Small pericardial effusion noted. Conclusion 1. Mildly enlarged left atrium, normal left ventricular size, mild concentric left ventricular hypertrophy, visually estimated ejection fraction 55% with no regional wall motion abnormality, diastolic parameters are inconclusive. 2. Trace mitral and tricuspid regurgitation. 3. Small pericardial effusion noted. Electronically signed by : Cameron Burch, 02/01/2021 11:58:23
--- NOTE | 2021-02-01 09:13 | XR_ITS ---
PROCEDURE: XR CHEST 2V CLINICAL HISTORY: dyspnea, edema COMPARISON: CR CXR CHEST(2 VIEWS-NOT PORTABLE) from 11/17/2014 CR CXR2V XR chest 2V from 07/02/2018 CR XR CHEST PORTABLE from 01/24/2021 FINDINGS: The cardiomediastinal silhouette and pulmonary vascularity are within normal limits. The lungs are clear without infiltrates, suspicious nodules, or pleural effusions. Increased density is present along the left heart border and the 5th rib anteriorly and may be due to summation artifact from pericardial fat pad and the rib. This may be confirmed follow-up. There is thoracic kyphosis with multi level degenerative changes in the thoracic overall not significantly changed. Postsurgical changes are left shoulder. IMPRESSION: No acute findings. Increased density along the heart border which may be due to summation artifact may be confirmed with Dictated by: Nimesh Chapin MD 02/01/2021 15:59 Nimesh Chapin MD in [place] 02/01/2021 15:59
== END ==
PROVIDERS: PCP Nurse Practitioner Family; Visit Provider Nurse Practitioner Family
DX: R06.00 Dyspnea, unspecified (principal); R42 Dizziness and giddiness; R60.9 Edema, unspecified; I10 Essential (primary) hypertension; R94.31 Abnormal electrocardiogram [ECG] [EKG]
CPT/HCPCS: 71046; 93306

== ENCOUNTER → 2021-02-07 13:15 | Outpatient (CLI) | payer OTHER, SELFPAY ==
[2021-02-07 14:25] LABS: Chloride 105 mmol/L (98-107)
[2021-02-07 14:26] LABS: Potassium 4.4 mmoL/L (3.5-5.1); Sodium 141 mmol/L (136-145)
[2021-02-07 14:29] LABS: Anion Gap 14.4 mEq/L (5-15); Blood Urea Nitrogen 22 mg/dl (7-17); Calcium 10.1 mg/dl (8.4-10.2); Carbon Dioxide 26 mmol/L (22.0-30.0); Estimated Glomerular Filt Rate 46 ml/min (>60); GFR (African American) 55 ML/MIN (>60); Glucose 90 mg/dl (74-100)
== END ==
PROVIDERS: Visit Provider Nurse Practitioner Family
DX: R06.00 Dyspnea, unspecified (principal); R42 Dizziness and giddiness; R94.31 Abnormal electrocardiogram [ECG] [EKG]; R60.9 Edema, unspecified; I10 Essential (primary) hypertension
CPT/HCPCS: 36415; 80048

== ENCOUNTER → 2021-02-13 10:51 | Outpatient (CLI) | payer OTHER, SELFPAY ==
[2021-02-13 11:49] LABS: Anion Gap 13.4 mEq/L (5-15); Blood Urea Nitrogen 18 mg/dl (7-17); Calcium 9.6 mg/dl (8.4-10.2); Carbon Dioxide 26 mmol/L (22.0-30.0); Chloride 106 mmol/L (98-107); Estimated Glomerular Filt Rate 51 ml/min (>60); GFR (African American) 61 ML/MIN (>60); Glucose 82 mg/dl (74-100); Potassium 4.4 mmoL/L (3.5-5.1); Sodium 141 mmol/L (136-145)
== END ==
PROVIDERS: Visit Provider Nurse Practitioner Family
DX: R06.00 Dyspnea, unspecified (principal); I10 Essential (primary) hypertension; R60.9 Edema, unspecified; R94.31 Abnormal electrocardiogram [ECG] [EKG]
CPT/HCPCS: 36415; 80048

== ENCOUNTER 2021-06-28 19:03 | Emergency (ER) | payer OTHER, SELFPAY ==
[2021-06-28] VITALS (16 sets, daily range): BP systolic 160–183; BP diastolic 95–119; PULSE 56–85; RESP 16–20; TEMP 36.4–36.8; O2SAT 92–99; BMI 42.9
--- NOTE | 2021-06-28 19:31 | CT_ITS ---
PROCEDURE INFORMATION: Exam: CT Abdomen And Pelvis Without Contrast Exam date and time: 06/28/2021 7:31 PM Age: 60 years old Clinical indication: Abdominal pain; Flank; Left; Prior surgery; Surgery date: 6+ months; Surgery type: Hysterectomy gb; Additional info: Left flank pain TECHNIQUE: Imaging protocol: Computed tomography of the abdomen and pelvis without contrast. Radiation optimization: All CT scans at this facility use at least one of these dose optimization techniques: automated exposure control; mA and/or kV adjustment per patient size (includes targeted exams where dose is matched to clinical indication); or iterative reconstruction. COMPARISON: CT ABDOMEN PELVIS W CON 01/19/2021 9:00 PM FINDINGS: Lungs: Mild atelectasis. Heart: Small pericardial effusion similar to prior. Coronary artery calcifications are seen. Mediastinal space: Small hiatal hernia. Postsurgical changes seen related to the proximal stomach . Liver: Normal. No mass. Gallbladder and bile ducts: Status post cholecystectomy. Pancreas: Normal. No ductal dilation. Spleen: Normal. No splenomegaly. Adrenal glands: Normal. No mass. Kidneys and ureters: Mild left hydronephrosis due to a proximal left ureteral stone that measures about 4 mm. No other stones are seen. Stomach and bowel: Mild colonic diverticulosis. No large or small bowel dilatation. Appendix: No evidence of appendicitis. Intraperitoneal space: Trace free fluid in the pelvis. Vasculature: Unremarkable. No abdominal aortic aneurysm. Lymph nodes: Unremarkable. No enlarged lymph nodes. Urinary bladder: Bladder is under distended. Reproductive: Status post hysterectomy. Bones/joints: Unremarkable. No acute fracture. Soft tissues: Unremarkable. IMPRESSION: 1. Mild left hydronephrosis due to a solitary 4 mm proximal left ureteral stone. 2. Small pericardial effusion again seen.
[2021-06-28 19:39] LABS: Basophils # 0.1 K/mm3 (0-0.2); Basophils % 0.8 % (0.1-2.0); Eosinophils # 0.1 K/mm3 (0.0-0.4); Eosinophils % 1.4 % (0.1-12.0); Hematocrit 34.8 % (37.0-47.0); Hemoglobin 11.5 g/dL (12.2-16.2); Lymphocytes # 2.6 K/mm3 (0.7-4.5); Lymphocytes % 37.6 % (10-50); Mean Corpuscular HGB Conc 33.1 g/dL (31.8-35.4); Mean Corpuscular Hemoglobin 29.5 pg (27.0-31.2); Mean Corpuscular Volume 89.1 fl (81-99); Monocytes # 0.5 K/mm3 (0.1-1.0); Monocytes % 7.3 % (1.7-9.3); Neutrophils # 3.6 K/mm3 (1.8-7.8); Platelet Count 260 K/mm3 (142-424); Red Cell Distribution Width 14.4 % (11.5-17.5); White Blood Count 6.8 K/mm3 (4.8-10.8)
[2021-06-28 19:41] LABS: Chloride 108 mmol/L (98-107); Potassium 4.1 mmoL/L (3.5-5.1); Sodium 142 mmol/L (136-145)
[2021-06-28 19:44] LABS: Alanine Aminotransferase 16 U/L (12-78); Albumin Level 4.3 g/dl (3.5-5.0); Albumin/Globulin Ratio 1.2 (1.1-1.8); Alkaline Phosphatase 96 U/L (38-126); Amylase 96 U/L (30-110); Anion Gap 11.1 mEq/L (5-15); Aspartate Amino Transferase 31 U/L (14-36); Bilirubin,Total 0.8 mg/dl (0.2-1.3); Blood Urea Nitrogen 10 mg/dl (7-17); Calcium 9.3 mg/dl (8.4-10.2); Carbon Dioxide 27 mmol/L (22.0-30.0); Creatinine Clearance Estimated 40 mL/min (50-200); Estimated Glomerular Filt Rate 42 ml/min (>60); GFR (African American) 51 ML/MIN (>60); Globulin 3.7 g/dL (1.3-3.2); Glucose 106 mg/dl (74-100); Lipase 138 U/L (23-300)
--- NOTE | 2021-06-28 20:26 | HMH.EDGENADL ---
ED Disposition Clinical Impression: Nephrolithiasis Disposition: Home, Self-Care Condition on Discharge: Good Prescriptions: Ketorolac Tromethamine [Toradol 10mg tablet] 10 mg PO Q6HP PRN 3 Days #12 tab MDD 40mg/day PRN Reason: Breakthru Moderate Pain Transmission Status: Received by [facility] Tamsulosin HCl [Flomax 0.4mg capsule] 0.4 mg PO HS 7 Days #7 cap Transmission Status: Received by [facility] Cefdinir [Omnicef 300mg Capsule] 300 mg PO BID #20 cap Transmission Status: Pending to [facility] Ondansetron [Zofran 4mg ODT] 4 mg PO TIDP PRN #12 tab PRN Reason: Nausea And Vomiting Transmission Status: Received by [facility] Referrals: Carlita Rockwell APRN [Primary Care Provider] - Andrei Clarke MD [Staff Physician] - - Critical Care Critical Care Time: No Attestation: On 06/28/21, the high probability of a clinically significant, sudden or life threatening deterioration of the following system(s) required my full and direct attention, intervention and personal management. The time I documented below is in addition to time spent performing reported procedures but includes the following listed in this critical care notation. Medical Decision Making - Franco Inquiry Pt receiving controlled substance: No Vital Signs: 06/28/21 19:16 06/28/21 19:17 06/28/21 19:19 Temperature 97.6 F 97.6 F Temperature Source Oral Oral Pulse Rate 82 69 Pulse Rate [Right] 73 Respiratory Rate 17 20 Blood Pressure 162/105 H 165/108 H Blood Pressure [Right Arm] 162/105 H Blood Pressure Mean 122 Blood Pressure Mean [Right Arm] 124 Blood Pressure Source Automatic Cuff Blood Pressure Source [Right Arm] Automatic Cuff Blood Pressure Position Sitting Blood Pressure Position [Right Arm] Sitting 02 Sat by Pulse Oximetry 93 L 95 95 Oxygen Delivery Method Room Air Room Air 06/28/21 19:30 06/28/21 19:56 06/28/21 20:27 Temperature Temperature Source Pulse Rate 63 61 70 Pulse Rate [Right] Respiratory Rate 17 17 Blood Pressure 162/109 H 170/99 H 160/97 H Blood Pressure [Right Arm] Blood Pressure Mean 119 Blood Pressure Mean [Right Arm] Blood Pressure Source Automatic Cuff Automatic Cuff Blood Pressure Source [Right Arm] Blood Pressure Position Supine Supine Blood Pressure Position [Right Arm] 02 Sat by Pulse Oximetry 95 95 92 L Oxygen Delivery Method Room Air Room Air 06/28/21 20:56 Temperature 98.2 F Temperature Source Oral Pulse Rate 60 Pulse Rate [Right] Respiratory Rate 17 Blood Pressure 170/111 H Blood Pressure [Right Arm] Blood Pressure Mean Blood Pressure Mean [Right Arm] Blood Pressure Source Automatic Cuff Blood Pressure Source [Right Arm] Blood Pressure Position Supine Blood Pressure Position [Right Arm] 02 Sat by Pulse Oximetry 99 Oxygen Delivery Method Room Air - Lab Data Lab Results 06/28/21 19:20: WBC 6.8, RBC 3.90 L, Hgb 11.5 L, Hct 34.8 L, MCV 89.1, MCH 29.5, MCHC 33.1, RDW 14.4, Plt Count 260, MPV 8.0, Neut % (Auto) 53.0, Lymph % (Auto) 37.6, [place] % (Auto) 7.3, Eos % (Auto) 1.4, Baso % (Auto) 0.8, Neut # (Auto) 3.6, Lymph # (Auto) 2.6, [place] # (Auto) 0.5, Eos # (Auto) 0.1, Baso # (Auto) 0.1 06/28/21 19:20: Sodium 142, Potassium 4.1, Chloride 108 H, Carbon Dioxide 27, Anion Gap 11.1, BUN 10, Creatinine 1.30 H, Estimated Creat Clear 40, Estimated GFR 42 L, Est GFR ( Amer) 51 L, Glucose 106 H, Calcium 9.3, Total Bilirubin 0.8, AST 31, ALT 16, Alkaline Phosphatase 96, Total Protein 8.0, Albumin 4.3, Globulin 3.7 H, Albumin/Globulin Ratio 1.2, Amylase 96, Lipase 138 06/28/21 20:41: Urine Color Dk yellow, Urine Appearance Cloudy, Urine pH 5.5, Ur Specific [place] >= 1.030, Urine Protein 1+, Urine Glucose (UA) Negative, Urine Ketones Trace, Urine Blood 3+, Urine Nitrate Negative, Urine Bilirubin 1+ A, Urine Urobilinogen 0.2, Ur Leukocyte Esterase 2+ A, Urine RBC Tntc, Urine WBC Tntc, Ur Squamous Epith Ce
[2021-06-28 20:48] LABS: Microscopic, Urine URINE MICROSCOPIC (MICROSCOPIC)
[2021-06-28 20:52] LABS: Appearance,Urine CLOUDY (Clear); Blood, Urine 3+ (Negative); Color,Urine DK YELLOW (Yellow); Glucose,Urine (UA) Negative (Negative); Ketones,Urine TRACE (Negative); Leukocyte Esterase,Urine 2+ (Negative); Nitrate,Urine Negative (Negative); PH,Urine 5.5 (5.0-8.5); Protein,Urine 1+ (Negative); Specific Gravity, Urine >= 1.030 (1.005-1.030); Urobilinogen,Urine 0.2 EU/dl (0.2)
[2021-06-28 20:54] LABS: Bilirubin,Urine 1+ (Negative)
[2021-06-28 21:03] LABS: RBC,Urine TNTC #/hpf (0-3); WBC,Urine TNTC #/hpf (0-3)
[2021-06-28 21:04] LABS: Bacteria,Urine 3+ /lpf
--- NOTE | 2021-06-28 21:13 | PC.NURSE ---
Dr Clarke paged at this time
--- NOTE | 2021-06-28 21:22 | PC.NURSE ---
ernestina LONGO on phone with dr arndt
== END 2021-06-28 22:22 | disposition home or self-care (01) ==
PROVIDERS: Emergency Medicine; Emergency Provider Emergency Medicine; PCP Nurse Practitioner Family
DX: N20.0 Calculus of kidney (principal); I10 Essential (primary) hypertension; I25.10 Atherosclerotic heart disease of native coronary artery without angina pectoris; E78.5 Hyperlipidemia, unspecified; Z79.899 Other long term (current) drug therapy
CPT/HCPCS: 74176; 80053; 81001; 82150; 83690; 85025; 87086; 96365; 96375; 99283; J2405

== ENCOUNTER → 2021-09-02 15:12 | Outpatient (CLI) | payer OTHER, SELFPAY ==
--- NOTE | 2021-09-02 15:19 | XR_ITS ---
PROCEDURE INFORMATION: Exam: XR Chest Exam date and time: 09/02/2021 3:19 PM Age: 61 years old Clinical indication: Cough; Additional info: Cough, rhonchi at lt lung base TECHNIQUE: Imaging protocol: XR of the chest. Views: 2 views. COMPARISON: CR XR CHEST 2V 02/01/2021 9:14 AM FINDINGS: Lungs: Atelectatic changes noted within both lung bases. Pleural spaces: Unremarkable. No pleural effusion. No pneumothorax. Heart/Mediastinum: The heart demonstrates mild diffuse enlargement. Bones/joints: Moderate degenerative changes of the thoracic spine with increased dorsal kyphotic curvature. Postoperative changes of the left shoulder. IMPRESSION: 1. The heart demonstrates mild diffuse enlargement. 2. Atelectatic changes noted within both lung bases.
== END ==
PROVIDERS: PCP Nurse Practitioner Family; Visit Provider Nurse Practitioner Family
DX: R05.9 Cough, unspecified (principal); R09.89 Other specified symptoms and signs involving the circulatory and respiratory systems
CPT/HCPCS: 71046

== ENCOUNTER 2021-09-05 14:06 | Emergency (ER) | payer OTHER, SELFPAY ==
[2021-09-05 14:08] VITALS: BP 144/98; PULSE 81; RESP 20; TEMP 36.6; O2SAT 94; BMI 44.1
[2021-09-05 15:00] VITALS: BP 144/98; PULSE 82; RESP 20; O2SAT 94
--- NOTE | 2021-09-05 15:11 | XR_ITS ---
PROCEDURE: XR CHEST 2V CLINICAL HISTORY: sob COMPARISON: CR XR CHEST PORTABLE from 01/24/2021 CR XR CHEST 2V from 02/01/2021 CR XR CHEST 2V from 09/02/2021 FINDINGS: Borderline cardiomegaly without CHF. The lungs are clear without infiltrates, suspicious nodules, or pleural effusions. Thoracic kyphosis with multilevel degenerative changes with mild upper thoracic curvature convex left and lower thoracic curvature convex right IMPRESSION: No acute findings. Dictated by: Nimesh Chapin MD 09/05/2021 16:09 Nimesh Chapin MD in [facility] 09/05/2021 16:09
--- NOTE | 2021-09-05 15:17 | ECG_ITS ---
APPROVED REPORT Exam: Resting ECG HR:79 bpm ECG Measurements Heart Rate 79 AXES GA 168 P 10 QRSd 88 QRS -69 QT 388 T 11 QTc 444 Conclusion Normal sinus rhythm Left atrial abnormality Left axis deviation Late r wave progression Abnormal ECG Electronically signed by : Donovan Mejia MD 09/07/2021 08:59:27
--- NOTE | 2021-09-05 15:25 | HMH.EDGENADL ---
ED Disposition Clinical Impression: Strep pharyngitis Upper respiratory infection Qualifiers: URI type: unspecified URI Qualified Code(s): J06.9 - Acute upper respiratory infection, unspecified Disposition: Home, Self-Care Condition on Discharge: Good Additional Instructions: Continue medications as prescribed. Call your primary care doctor tomorrow for follow-up. Referrals: Carlita Rockwell APRN [Primary Care Provider] - - Critical Care Critical Care Time: No Attestation: On 09/05/21, the high probability of a clinically significant, sudden or life threatening deterioration of the following system(s) required my full and direct attention, intervention and personal management. The time I documented below is in addition to time spent performing reported procedures but includes the following listed in this critical care notation. Medical Decision Making - Franco Inquiry Pt receiving controlled substance: No Vital Signs: 09/05/21 14:08 09/05/21 16:01 Temperature 97.8 F Temperature Source Oral Pulse Rate 78 Pulse Rate [Radial] 81 Respiratory Rate 20 18 Blood Pressure 138/90 Blood Pressure [Right Arm] 144/98 H Blood Pressure Mean 106 Blood Pressure Mean [Right Arm] 113 Blood Pressure Position [Right Arm] Sitting 02 Sat by Pulse Oximetry 94 L 95 Oxygen Delivery Method Room Air - Lab Data Lab Results 09/05/21 15:45: WBC 6.9, RBC 4.22, Hgb 12.8, Hct 39.4, MCV 93.3, MCH 30.3, MCHC 32.5, RDW 14.1, Plt Count 366, MPV 8.4, Neut % (Auto) 51.1, Lymph % (Auto) 37.7, [place] % (Auto) 7.1, Eos % (Auto) 3.2, Baso % (Auto) 1.0, Neut # (Auto) 3.5, Lymph # (Auto) 2.6, [place] # (Auto) 0.5, Eos # (Auto) 0.2, Baso # (Auto) 0.1 09/05/21 15:45: Sodium 140, Potassium 3.8, Chloride 105, Carbon Dioxide 26, Anion Gap 12.8, BUN 18 H, Creatinine 1.20 H, Estimated Creat Clear 43, Estimated GFR 46 L, Est GFR ( Amer) 55 L, Glucose 95, Calcium 9.5, Total Bilirubin 0.7, AST 31, ALT 18, Alkaline Phosphatase 114, Troponin I < 0.01, Total Protein 8.5 H, Albumin 4.1, Globulin 4.4 H, Albumin/Globulin Ratio 0.9 L 09/05/21 15:45: NT-Pro-B Natriuret Pep 105 Result diagrams: 09/05/21 15:45 09/05/21 15:45 Orders (Tests/Meds): ORDERS Category Date Time Status Rapid PCR Covid and Flu A/B Stat Lab 09/05/21 15:45 Received Troponin I Q3H Lab 09/05/21 18:15 Ordered Troponin I Q3H Lab 09/05/21 21:15 Ordered - Radiology Data #1 Image(s): Chest Image Reviewed: Yes I reviewed the patient's radiology image, Yes I have reviewed radiologist's interpretation PROCEDURE: XR CHEST 2V CLINICAL HISTORY: sob COMPARISON: CR XR CHEST PORTABLE from 01/24/2021 CR XR CHEST 2V from 02/01/2021 CR XR CHEST 2V from 09/02/2021 FINDINGS: Borderline cardiomegaly without CHF. The lungs are clear without infiltrates, suspicious nodules, or pleural effusions. Thoracic kyphosis with multilevel degenerative changes with mild upper thoracic curvature convex left and lower thoracic curvature convex right IMPRESSION: No acute findings. Dictated by: Nimesh Chapin MD 09/05/2021 16:09 Nimesh Chapin MD in [facility] 09/05/2021 16:09 - ECG Data Tracing #1 EKG interpreted by David Deleon MD: Rhythm: sinus Rate: 79 [place]: Left Ectopy: none Conduction: normal ST Segment Changes: none T Wave Changes: none Q Waves: none Poor R wave progression No evidence of acute ischemia or injury Baseline artifact present General Adult HPI - General Chief complaint: Shortness of Breath/Dyspnea Stated complaint: fluid on lungs Time Seen by Provider: 09/05/21 16:30 Mode of Arrival: Ambulatory Limitations: No Limitations Description of Symptoms (Recalled from ER Triage Doc. by RN): to ed per pvt car pt sent by pcp for eval due to fluid on my lungs pt states she was seen in office thursday was given a rocephin and steroid shot and script for zpack and steroids had a chest xray thursday night, seen again in office
[2021-09-05 15:32] VITALS: BP 114/85; PULSE 77; RESP 20; O2SAT 96
[2021-09-05 16:00] LABS: Coronavirus 19, PCR Not Detected (NotDetected); Influenza A, PCR Not Detected (NotDetected); Influenza B, PCR Not Detected (NotDetected)
[2021-09-05 16:01] VITALS: BP 138/90; PULSE 78; RESP 18; O2SAT 95
[2021-09-05 16:08] LABS: Alanine Aminotransferase 18 U/L (12-78); Albumin Level 4.1 g/dl (3.5-5.0); Albumin/Globulin Ratio 0.9 (1.1-1.8); Alkaline Phosphatase 114 U/L (38-126); Anion Gap 12.8 mEq/L (5-15); Aspartate Amino Transferase 31 U/L (14-36); Bilirubin,Total 0.7 mg/dl (0.2-1.3); Blood Urea Nitrogen 18 mg/dl (7-17); Calcium 9.5 mg/dl (8.4-10.2); Carbon Dioxide 26 mmol/L (22.0-30.0); Chloride 105 mmol/L (98-107); Creatinine Clearance Estimated 43 mL/min (50-200); Estimated Glomerular Filt Rate 46 ml/min (>60); GFR (African American) 55 ML/MIN (>60); Globulin 4.4 g/dL (1.3-3.2); Glucose 95 mg/dl (74-100); Potassium 3.8 mmoL/L (3.5-5.1); Sodium 140 mmol/L (136-145); Total Protein,Serum 8.5 g/dl (6.3-8.2)
[2021-09-05 16:11] LABS: Basophils # 0.1 K/mm3 (0-0.2); Eosinophils # 0.2 K/mm3 (0.0-0.4); Eosinophils % 3.2 % (0.1-12.0); Hematocrit 39.4 % (37.0-47.0); Hemoglobin 12.8 g/dL (12.2-16.2); Lymphocytes # 2.6 K/mm3 (0.7-4.5); Lymphocytes % 37.7 % (10-50); Mean Corpuscular HGB Conc 32.5 g/dL (31.8-35.4); Mean Corpuscular Hemoglobin 30.3 pg (27.0-31.2); Mean Corpuscular Volume 93.3 fl (81-99); Mean Platelet Volume 8.4 fl (7.4-10.4); Monocytes # 0.5 K/mm3 (0.1-1.0); Monocytes % 7.1 % (1.7-9.3); Neutrophils # 3.5 K/mm3 (1.8-7.8); Neutrophils % 51.1 % (37.0-80.0); Platelet Count 366 K/mm3 (142-424); Red Blood Count 4.22 M/mm3 (4.20-5.40); Red Cell Distribution Width 14.1 % (11.5-17.5); White Blood Count 6.9 K/mm3 (4.8-10.8)
[2021-09-05 16:17] LABS: NT Pro Brain Natriuretic Pep. 105 pg/mL (0-125)
[2021-09-05 16:21] LABS: Troponin I < 0.01 ng/ml (0.00-0.034)
[2021-09-05 16:57] VITALS: BP 133/68; PULSE 78; RESP 20; TEMP 36.6; O2SAT 96
== END 2021-09-05 16:58 | disposition home or self-care (01) ==
PROVIDERS: Emergency Provider Emergency Medicine; PCP Nurse Practitioner Family
DX: J02.0 Streptococcal pharyngitis (principal)
CPT/HCPCS: 71046; 80053; 83880; 84484; 85025; 93005; 99283; C9803; U0003; U0005

== ENCOUNTER → 2021-12-06 07:21 | Outpatient (CLI) | payer OTHER, SELFPAY ==
--- NOTE | 2021-12-06 07:21 | NM_ITS ---
APPROVED REPORT Exam: Nuclear Stress Test Indication: DYSRHYTHMIA, OBESITY, HTN, HYPERLIPIDEMIA, FM HX. EDEMA, C.P., SOB Patient Location: Outpatient Stress Tech: Kathy Craft [place] Tech:Jojo AntonioNUPUR RT (R)(N)(M) Ht: 5 ft 0 in Wt: 268 lbs Bra Size: 44DDD HR: 79 bpm BP: 130/71 mmHg BSA: 2.11 m2 History: DYSRHYTHMIA, OBESITY, HTN, HYPERLIPIDEMIA, FM HX. EDEMA, C.P., SOB Procedure: Patient received a 0.4 mg of intravenous Lexiscan, resting heart rate 79 bpm, resting blood pressure 130/71 mmHg, with Lexiscan maximum heart rate achived was 71 bpm which is Less than 85 % of the maximum predicted heart rate and blood pressure was 163/79 mmHg. With Lexiscan, patient denied any complaint of chest pain. Electrocardiogram Resting electrocardiogram showed sinus rhythm with with Lexiscan there is less than 1.[address] segment depression noted from the baseline EKG. The EKG portion of the Lexiscan is nondiagnostic. Cardiac Stress and Resting SPECT Images: Cardiac Stress and Resting SPECT images were obtained using technetium 99m Myoview 31.1 mCi stress and 10.01 mCi at rest. Gated SPECT analysis of segmental wall motion and calculation of the ejection fraction also done, prone images were also obtained. Cardiac stress and rest SPECT images show fixed defect in the anterior wall with normal contractility and the gated SPECT is likely secondary to soft tissue attenuation from the breast, however there is transient ischemic dilatation of the left ventricle seen. Computer driving ejection fraction is 64% with no regional wall motion abnormality, right ventricle is normal size and contractility. Conclusion: 1. The EKG portion of the Lexiscan is nondiagnostic. 2. No scintigraphic evidence of reversible ischemia seen, a fixed defect in the anterior wall is likely secondary to soft tissue attenuation, however there is transient ischemic dilatation of the left ventricle seen, raising the concerns for presence of balanced ischemia, other causes for transient ischemic dilatation include elevated left ventricular end-diastolic pressure, microvascular disease, hypertensive heart disease and diabetes mellitus. Clinical correlation is recommended. Computer derived ejection fraction is 64% with no regional wall motion abnormality. 3. Abnormal Lexiscan Myoview study. Electronically signed by : Cameron Burch MD 12/06/2021 14:02:46
--- NOTE | 2021-12-06 07:21 | CA_ITS ---
APPROVED REPORT Exam: Pharmacologic Technologist: Kathy Craft, Ht: 5 ft 5 in Wt: 268 lbs BSA: 2.24 m2 HR: 58 bpm Rhythm: NSR Medical History Medications: Levothyroxine,,,,, Pantoprazole,,,,, Atorvastatin,,,,, Carvedilol,,,,, OxYCODONE,,,,, ONdanESETRAN,,,,, Lisinopri/HCTZ,,,,, Furosemide,,,,, KETORALAC,,,,, Allergies: ACETAMINOPHEN, TRAMADOL Stress Test Details Test: LEXISCAN HR Resting HR: 59 bpm Max Heart Rate (APMHR): 159.956119 bpm Max HR Achieved: 80 bpm Target HR (85% APMHR): 135.778222 bpm % of APMHR: 50.31 BP Resting BP: 138/71 mmHg Max BP: 163/79 mmHg ECG Clinical Reason for Termination: Completed Protocol Exercise duration: 04:01 min Highest Stage Achieved: Stress ECG Conclusion <1.[address] SEGMENT CHANGES. NON-DIAGNOSTIC Test Summary RECOVERY 01:48 . . 67 . 135/ 84 . . Stage 1 01:00 . . 71 . . . . Stage 2 01:00 . . 76 . . . . Stage 3 01:00 . . 71 . 163/ 79 . . Stage 4 01:00 . . 68 . 162/ 75 . . Stage 4 01:01 . . 68 . 162/ 75 . Stop exercise at 04:01 RECOVERY 01:00 . . 67 . . . . RECOVERY 01:48 . . 67 . 135/ 84 . . Electronically signed by : Cameron Burch MD 12/06/2021 13:59:10
== END ==
PROVIDERS: PCP Nurse Practitioner Family; Visit Provider Nurse Practitioner Family
DX: R06.00 Dyspnea, unspecified (principal); I10 Essential (primary) hypertension; I51.89 Other ill-defined heart diseases; R60.9 Edema, unspecified; E66.01 Morbid (severe) obesity due to excess calories; G47.33 Obstructive sleep apnea (adult) (pediatric); Z68.41 Body mass index [BMI] 40.0-44.9, adult
CPT/HCPCS: 78452; 93017; A9502; J2785

== ENCOUNTER → 2021-12-10 13:08 | Outpatient (CLI) | payer OTHER, SELFPAY ==
[2021-12-10 14:21] LABS: Chloride 101 mmol/L (98-107); Potassium 4.3 mmoL/L (3.5-5.1); Sodium 135 mmol/L (136-145)
[2021-12-10 14:24] LABS: Anion Gap 9.3 mEq/L (5-15); Blood Urea Nitrogen 20 mg/dl (7-17); Calcium 9.6 mg/dl (8.4-10.2); Carbon Dioxide 29 mmol/L (22.0-30.0); Estimated Glomerular Filt Rate 42 ml/min (>60); GFR (African American) 50 ML/MIN (>60); Glucose 110 mg/dl (74-100)
== END ==
PROVIDERS: PCP Nurse Practitioner Family; Visit Provider Nurse Practitioner Family
DX: I10 Essential (primary) hypertension (principal); R06.00 Dyspnea, unspecified; R60.9 Edema, unspecified; E66.01 Morbid (severe) obesity due to excess calories; G47.33 Obstructive sleep apnea (adult) (pediatric); Z68.41 Body mass index [BMI] 40.0-44.9, adult
CPT/HCPCS: 36415; 80048

== ENCOUNTER → 2021-12-11 14:17 | Outpatient (CLI) | payer OTHER, SELFPAY ==
[2021-12-11 14:54] LABS: Basophils # 0.1 K/mm3 (0-0.2); Basophils % 0.7 % (0.1-2.0); Eosinophils # 0.1 K/mm3 (0.0-0.4); Eosinophils % 1.2 % (0.1-12.0); Hematocrit 42.5 % (37.0-47.0); Hemoglobin 12.9 g/dL (12.2-16.2); Lymphocytes # 2.3 K/mm3 (0.7-4.5); Lymphocytes % 33.8 % (10-50); Mean Corpuscular HGB Conc 30.3 g/dL (31.8-35.4); Mean Corpuscular Hemoglobin 29.9 pg (27.0-31.2); Mean Corpuscular Volume 98.6 fl (81-99); Mean Platelet Volume 10.4 fl (7.4-10.4); Monocytes # 0.6 K/mm3 (0.1-1.0); Monocytes % 8.1 % (1.7-9.3); Neutrophils # 3.9 K/mm3 (1.8-7.8); Neutrophils % 56.2 % (37.0-80.0); Platelet Count 429 K/mm3 (142-424); Red Blood Count 4.31 M/mm3 (4.20-5.40); Red Cell Distribution Width 13.9 % (11.5-17.5); White Blood Count 6.9 K/mm3 (4.8-10.8)
== END ==
PROVIDERS: PCP Nurse Practitioner Family; Visit Provider Nurse Practitioner Family
DX: Z01.812 Encounter for preprocedural laboratory examination (principal); Z11.52 Encounter for screening for COVID-19; R06.00 Dyspnea, unspecified; I20.8 Other forms of angina pectoris; I10 Essential (primary) hypertension; R94.39 Abnormal result of other cardiovascular function study; R94.31 Abnormal electrocardiogram [ECG] [EKG]; E66.01 Morbid (severe) obesity due to excess calories; E78.2 Mixed hyperlipidemia; Z68.43 Body mass index [BMI] 50.0-59.9, adult
CPT/HCPCS: 85025; C9803; U0003; U0005

== ENCOUNTER 2021-12-13 09:09 | Day surgery (SDC) | payer OTHER, SELFPAY ==
[2021-12-13] VITALS (11 sets, daily range): BP systolic 95–168; BP diastolic 66–104; PULSE 77–105; RESP 18–19; TEMP 36.6; O2SAT 96–100; BMI 43.4
--- NOTE | 2021-12-13 07:05 | IR_ITS ---
APPROVED REPORT Patient Location: Outpatient Orthopedic Coder: NUPUR Myers RT (R) PROCEDURES Left heart catheterization Left ventriculogram Selective coronary angiogram INDICATION High risk abnormal Myoview Informed consent was obtained prior to the procedure. COMPLICATIONS NONE Estimated Blood Loss: LESS THAN 10 ML TECHNIQUE One percent lidocaine used to anesthetize the right anterior aspect of the wrist. The right radial artery was accessed via the Seldinger technique. A 6 [place] sheath was placed in the right radial artery. 2.5 mg of verapamil, 800 mcg of nitroglycerin, 1mg Lidocaine and 5000 U Heparin were given through the arterial sheath. The [place] catheter was also used to perform left heart catheterization, left ventriculogram and selective coronary angiogram. At the end of the procedure the sheath was removed good hemostasis was achieved using Traclet band, patient was transferred to the postop holding area in stable condition. ANGIOGRAPHIC RESULTS The left anterior descending artery Normal mild diffuse 10% luminal regularities The circumflex artery Nondominant mild diffuse 10% luminal regularities The right coronary artery Dominant with mild diffuse 10% luminal regularities The BOSE ventriculogram reveals Normal 65% The left ventricular end-diastolic pressure 15 mmHg IMPRESSION Mild diffuse luminal regularities Normal ejection fraction Mildly elevated LVEDP PLAN 1. Risk factor modification for coronary disease 2. Treatment of borderline diastolic dysfunction Electronically signed by : Laith Blevins MD 12/13/2021 12:39:14
== END 2021-12-13 14:38 | disposition home or self-care (01) ==
LOC: CATHLAB 09:10
PROVIDERS: PCP Nurse Practitioner Family; Visit Provider Internal Medicine
DX: I25.118 Atherosclerotic heart disease of native coronary artery with other forms of angina pectoris (principal); I10 Essential (primary) hypertension; R94.31 Abnormal electrocardiogram [ECG] [EKG]; E66.01 Morbid (severe) obesity due to excess calories; E03.9 Hypothyroidism, unspecified; E11.9 Type 2 diabetes mellitus without complications; G47.33 Obstructive sleep apnea (adult) (pediatric); Z68.41 Body mass index [BMI] 40.0-44.9, adult; R94.39 Abnormal result of other cardiovascular function study
CPT/HCPCS: 93458; 99152; 99153; C1725; C1769; J1644; J2405; Q9967

== ENCOUNTER → 2021-12-23 11:45 | Outpatient (CLI) | payer OTHER, SELFPAY ==
[2021-12-23 15:25] LABS: Anion Gap 14.4 mEq/L (5-15); Blood Urea Nitrogen 23 mg/dl (7-17); Calcium 9.9 mg/dl (8.4-10.2); Carbon Dioxide 30 mmol/L (22.0-30.0); Chloride 102 mmol/L (98-107); Estimated Glomerular Filt Rate 35 ml/min (>60); GFR (African American) 43 ML/MIN (>60); Glucose 103 mg/dl (74-100); Potassium 4.4 mmoL/L (3.5-5.1); Sodium 142 mmol/L (136-145)
== END ==
PROVIDERS: PCP Nurse Practitioner Family; Visit Provider Physician Assistant
DX: R06.00 Dyspnea, unspecified (principal); I10 Essential (primary) hypertension; R60.0 Localized edema; E78.2 Mixed hyperlipidemia; E66.01 Morbid (severe) obesity due to excess calories; G47.33 Obstructive sleep apnea (adult) (pediatric); R94.31 Abnormal electrocardiogram [ECG] [EKG]; Z82.49 Family history of ischemic heart disease and other diseases of the circulatory system; Z68.41 Body mass index [BMI] 40.0-44.9, adult
CPT/HCPCS: 36415; 80048

== ENCOUNTER 2022-01-19 19:33 | Emergency (ER) | payer OTHER, SELFPAY ==
[2022-01-19 19:34] VITALS: BP 154/85; PULSE 85; RESP 18; TEMP 36.7; O2SAT 97; BMI 44.6
[2022-01-19 19:48] VITALS: BMI 44.6
--- NOTE | 2022-01-19 19:49 | CT_ITS ---
PROCEDURE INFORMATION: Exam: CT Abdomen And Pelvis With Contrast Exam date and time: 01/19/2022 7:49 PM Age: 61 years old Clinical indication: Abdominal pain; Localized; Left lower quadrant (llq); Additional info: Llq pain x 2 days TECHNIQUE: Imaging protocol: Computed tomography of the abdomen and pelvis with contrast. Radiation optimization: All CT scans at this facility use at least one of these dose optimization techniques: automated exposure control; mA and/or kV adjustment per patient size (includes targeted exams where dose is matched to clinical indication); or iterative reconstruction. Contrast material: ISOVUE; Contrast volume: 75 ml; Contrast route: IV; COMPARISON: CT ABDOMEN PELVIS WO CON 06/28/2021 7:42 PM FINDINGS: Heart: Cardiomegaly. Liver: Normal. No mass. Gallbladder and bile ducts: Cholecystectomy. Pancreas: Normal. No ductal dilation. Spleen: Normal. No splenomegaly. Adrenal glands: Normal. No mass. Kidneys and ureters: Normal. No hydronephrosis. Stomach and bowel: Postsurgical changes in the stomach. There is wall thickening of the proximal sigmoid colon with diverticula and surrounding inflammatory changes consistent with acute diverticulitis. Appendix: No evidence of appendicitis. Intraperitoneal space: Unremarkable. No free air. No significant fluid collection. Vasculature: Unremarkable. No abdominal aortic aneurysm. Lymph nodes: Unremarkable. No enlarged lymph nodes. Urinary bladder: Unremarkable as visualized. Reproductive: Hysterectomy. Bones/joints: Unremarkable. No acute fracture. Soft tissues: Unremarkable. IMPRESSION: Acute diverticulitis involving the proximal sigmoid colon. No perforation or abscess.
[2022-01-19 19:53] LABS: Microscopic, Urine URINE MICROSCOPIC (MICROSCOPIC)
--- NOTE | 2022-01-19 19:57 | HMH.EDNVD ---
ED Disposition Clinical Impression: Diverticulitis Disposition: Home, Self-Care Condition on Discharge: Good Instructions: DI for Diverticulitis Additional Instructions: use meds and call pcp for follow up Prescriptions: metroNIDAZOLE [metroNIDAZOLE 500mg Tablet] 500 mg PO TID #30 tab Transmission Status: Pending to [facility] Cefdinir [Omnicef 300mg Capsule] 300 mg PO BID #14 cap Transmission Status: Pending to [facility] Referrals: Carlita Rockwell APRN [Primary Care Provider] - - Critical Care Critical Care Time: No Attestation: On 01/19/22, the high probability of a clinically significant, sudden or life threatening deterioration of the following system(s) required my full and direct attention, intervention and personal management. The time I documented below is in addition to time spent performing reported procedures but includes the following listed in this critical care notation. Medical Decision Making - Medical Records Medical records reviewed: Yes: I reviewed the patient's medical records. - Franco Inquiry Pt receiving controlled substance: No Vital Signs: 01/19/22 19:34 Temperature 98.0 F Temperature Source Oral Pulse Rate [Left Radial] 85 Respiratory Rate 18 Blood Pressure [Right Arm] 154/85 H Blood Pressure Mean [Right Arm] 108 Blood Pressure Source [Right Arm] Automatic Cuff Blood Pressure Position [Right Arm] Standing 02 Sat by Pulse Oximetry 97 Oxygen Delivery Method Room Air - Lab Data Lab results reviewed: Yes: I reviewed the patient's lab results. Lab Results 01/19/22 19:38: Urine Color Yellow, Urine Appearance Sl cloudy, Urine pH 5.5, Ur Specific [place] 1.020, Urine Protein Negative, Urine Glucose (UA) Negative, Urine Ketones Negative, Urine Blood Negative, Urine Nitrate Negative, Urine Bilirubin Negative, Urine Urobilinogen 0.2, Ur Leukocyte Esterase 1+ A, Urine WBC 10-20, Ur Squamous Epith Cells 5-10 01/19/22 19:50: WBC 10.2, RBC 4.27, Hgb 12.7, Hct 39.6, MCV 92.7, MCH 29.6, MCHC 31.9, RDW 13.7, Plt Count 357, MPV 7.9, Neut % (Auto) 63.9, Lymph % (Auto) 27.2, [place] % (Auto) 7.3, Eos % (Auto) 0.9, Baso % (Auto) 0.7, Neut # (Auto) 6.5, Lymph # (Auto) 2.8, [place] # (Auto) 0.7, Eos # (Auto) 0.1, Baso # (Auto) 0.1, ESR 78 H 01/19/22 19:50: Sodium 140, Potassium 4.1, Chloride 99, Carbon Dioxide 32 H, Anion Gap 13.1, BUN 17, Creatinine 1.30 H, Estimated Creat Clear 39, Estimated GFR 42 L, Est GFR ( Amer) 50 L, Glucose 111 H, Calcium 9.4, Total Bilirubin 0.8, Direct Bilirubin 0.2, Conjugated Bilirubin 0.0, Indirect Bilirubin 0.6, Unconjugated Bilirubin 0.7, AST 58 H, ALT 41, Alkaline Phosphatase 134 H, C-Reactive Protein 37.8 H, Total Protein 8.9 H, Albumin 4.6, Procalcitonin 0.053 01/19/22 20:45: Lactate 0.7 Result diagrams: 01/19/22 19:50 01/19/22 19:50 Orders (Tests/Meds): ED MEDICATIONS Generic Name Dose Route Start Last Admin Trade Name Freq PRN Reason Stop Dose Admin Sodium Chloride 1,000 mls @ 999 mls/hr 01/19/22 20:00 01/19/22 20:00 Sod Chlor 0.9% 1000ml Bag IV 01/19/22 21:00 999 mls/hr .Q1H1M BRITTA Administration Sodium Chloride 8 ml 01/19/22 19:50 Sodium Chloride 0.9% 10ml Vial IV 02/18/22 19:49 NEEDED PRN dilute pepcid Discontinued Medications Generic Name Dose Route Start Last Admin Trade Name Freq PRN Reason Stop Dose Admin Famotidine 20 mg 01/19/22 19:50 01/19/22 20:00 Famotidine 20mg/2ml Vial IV 01/19/22 19:51 20 mg ONCE ONE Administration Iopamidol 75 ml 01/19/22 20:37 01/19/22 20:38 Iopamidol-370 (76%);100ml Bottle IV 01/19/22 20:38 75 ml ONCE ONE Administration Ketorolac Tromethamine 30 mg 01/19/22 19:50 01/19/22 20:00 Ketorolac 30mg/Ml Vial IV 01/19/22 19:51 30 mg ONCE ONE Administration Metoclopramide HCl 10 mg 01/19/22 19:50 01/19/22 20:00 Metoclopramide Hcl 10mg/2ml Vial IVP 01/19/22 19:51 10 mg ONCE ONE Administration Sodium Chloride 10 ml 0
[2022-01-19 20:01] VITALS: BP 150/76; PULSE 63; O2SAT 96
[2022-01-19 20:03] LABS: Basophils # 0.1 K/mm3 (0-0.2); Basophils % 0.7 % (0.1-2.0); Eosinophils # 0.1 K/mm3 (0.0-0.4); Eosinophils % 0.9 % (0.1-12.0); Hematocrit 39.6 % (37.0-47.0); Hemoglobin 12.7 g/dL (12.2-16.2); Lymphocytes # 2.8 K/mm3 (0.7-4.5); Lymphocytes % 27.2 % (10-50); Mean Corpuscular HGB Conc 31.9 g/dL (31.8-35.4); Mean Corpuscular Hemoglobin 29.6 pg (27.0-31.2); Mean Corpuscular Volume 92.7 fl (81-99); Mean Platelet Volume 7.9 fl (7.4-10.4); Monocytes # 0.7 K/mm3 (0.1-1.0); Monocytes % 7.3 % (1.7-9.3); Neutrophils # 6.5 K/mm3 (1.8-7.8); Neutrophils % 63.9 % (37.0-80.0); Platelet Count 357 K/mm3 (142-424); Red Blood Count 4.27 M/mm3 (4.20-5.40); Red Cell Distribution Width 13.7 % (11.5-17.5); White Blood Count 10.2 K/mm3 (4.8-10.8)
[2022-01-19 20:05] LABS: Appearance,Urine SL CLOUDY (Clear); Bilirubin,Urine Negative (Negative); Blood, Urine Negative (Negative); Color,Urine YELLOW (Yellow); Glucose,Urine (UA) Negative (Negative); Ketones,Urine Negative (Negative); Leukocyte Esterase,Urine 1+ (Negative); Nitrate,Urine Negative (Negative); PH,Urine 5.5 (5.0-8.5); Protein,Urine Negative (Negative); Urobilinogen,Urine 0.2 EU/dl (0.2)
[2022-01-19 20:10] LABS: Alanine Aminotransferase 41 U/L (12-78); Albumin Level 4.6 g/dl (3.5-5.0); Alkaline Phosphatase 134 U/L (38-126); Anion Gap 13.1 mEq/L (5-15); Aspartate Amino Transferase 58 U/L (14-36); Bilirubin,Direct 0.2 mg/dl (0.0-0.4); Bilirubin,Indirect 0.6 mg/dL (0.0-0.9); Bilirubin,Total 0.8 mg/dl (0.2-1.3); Bilirubin,Unconjugated 0.7 mg/dL (0.0-1.1); Blood Urea Nitrogen 17 mg/dl (7-17); Calcium 9.4 mg/dl (8.4-10.2); Carbon Dioxide 32 mmol/L (22.0-30.0); Chloride 99 mmol/L (98-107); Creatinine Clearance Estimated 39 mL/min (50-200); Estimated Glomerular Filt Rate 42 ml/min (>60); GFR (African American) 50 ML/MIN (>60); Glucose 111 mg/dl (74-100); Potassium 4.1 mmoL/L (3.5-5.1); Sodium 140 mmol/L (136-145); Total Protein,Serum 8.9 g/dl (6.3-8.2)
[2022-01-19 20:15] LABS: C-Reactive Protein 37.8 mg/L (0-4)
[2022-01-19 20:29] LABS: Procalcitonin 0.053 ng/mL (0.0-2.0)
[2022-01-19 20:38] LABS: Erythrocyte Sedimentation Rate 78 mm/hr (0-30)
[2022-01-19 20:59] LABS: Lactic Acid 0.7 mmol/L (0.7-2.1)
[2022-01-19 21:01] VITALS: BP 150/84; PULSE 66; O2SAT 97
[2022-01-19 21:22] VITALS: BP 153/88; PULSE 68; RESP 18; TEMP 36.5; O2SAT 98
== END 2022-01-19 21:49 | disposition home or self-care (01) ==
PROVIDERS: Emergency Provider Emergency Medicine; PCP Nurse Practitioner Family
DX: K57.92 Diverticulitis of intestine, part unspecified, without perforation or abscess without bleeding (principal); E78.5 Hyperlipidemia, unspecified; I10 Essential (primary) hypertension; Z79.899 Other long term (current) drug therapy
CPT/HCPCS: 74177; 80048; 80076; 81001; 83605; 84145; 85025; 85651; 86140; 87086; 96365; 96366; 96375; 99283; 99284; J1335; Q9967

== ENCOUNTER → 2022-03-11 10:11 | Outpatient (CLI) | payer OTHER, SELFPAY ==
--- NOTE | 2022-03-11 10:13 | MM_ITS ---
PROCEDURE INFORMATION: Exam: MG Bilateral Screening 3D Mammography Exam date and time: 03/11/2022 10:16 AM Age: 61 years old Clinical indication: Screening examination . Family history of breast carcinoma. TECHNIQUE: Imaging protocol: Bilateral Screening tomosynthesis and 2D mammography including computer-aided detection (CAD) when performed. COMPARISON: 1. MG MM DIG SCREENING MAMM BI W/CAD 09/26/2020 9:56 AM 2. MG MM DIG SCREENING MAMM BI W/CAD 07/26/2019 10:28 AM 3. MG SCBI MM Dig screening mamm BI w/CAD 06/11/2018 9:44 AM FINDINGS: MAMMOGRAPHY: Breast composition: There are scattered areas of fibroglandular density. Mass: No suspicious masses. Architectural distortion: No suspicious distortion. Calcifications: No suspicious calcifications. Asymmetric density: None. Skin thickening: None. Axillary adenopathy: None. IMPRESSION: No mammographic evidence of malignancy. Annual screening is recommended unless otherwise clinically indicated. ASSESSMENT: BI-RADS Category 1: Negative
== END ==
PROVIDERS: PCP Nurse Practitioner Family; Visit Provider Nurse Practitioner Family
DX: Z12.31 Encounter for screening mammogram for malignant neoplasm of breast (principal)
CPT/HCPCS: 77063; 77067

== ENCOUNTER → 2022-06-25 06:23 | Outpatient (CLI) | payer OTHER, SELFPAY ==
[2022-06-24 19:13] LABS: Basophils # 0.1 K/mm3 (0-0.2); Basophils % 0.7 % (0.1-2.0); Eosinophils # 0.2 K/mm3 (0.0-0.4); Eosinophils % 2.3 % (0.1-12.0); Hematocrit 34.6 % (37.0-47.0); Hemoglobin 11.1 g/dL (12.2-16.2); Lymphocytes # 2.2 K/mm3 (0.7-4.5); Mean Corpuscular HGB Conc 32.2 g/dL (31.8-35.4); Mean Corpuscular Hemoglobin 29.3 pg (27.0-31.2); Mean Corpuscular Volume 91.2 fl (81-99); Mean Platelet Volume 9.7 fl (7.4-10.4); Monocytes # 0.6 K/mm3 (0.1-1.0); Monocytes % 8.3 % (1.7-9.3); Neutrophils # 3.8 K/mm3 (1.8-7.8); Neutrophils % 56.7 % (37.0-80.0); Platelet Count 330 K/mm3 (142-424); Red Cell Distribution Width 14.8 % (11.5-17.5); White Blood Count 6.7 K/mm3 (4.8-10.8)
[2022-06-24 19:18] LABS: Alanine Aminotransferase 20 U/L (12-78); Albumin Level 3.8 g/dl (3.5-5.0); Albumin/Globulin Ratio 1.1 (1.1-1.8); Alkaline Phosphatase 127 U/L (38-126); Anion Gap 11.5 mEq/L (5-15); Aspartate Amino Transferase 33 U/L (14-36); Bilirubin,Total 0.9 mg/dl (0.2-1.3); Blood Urea Nitrogen 9 mg/dl (7-17); Calcium 9.7 mg/dl (8.4-10.2); Carbon Dioxide 26 mmol/L (22.0-30.0); Chloride 107 mmol/L (98-107); Chol/HDL Ratio 2.6 (1-3.5); Cholesterol 147 mg/dl (140-200); Estimated Glomerular Filt Rate 46 ml/min (>60); GFR (African American) 55 ML/MIN (>60); Globulin 3.6 g/dL (1.3-3.2); Glucose 90 mg/dl (74-100); HDL Cholesterol 56 mg/dl (40-60); Potassium 4.5 mmoL/L (3.5-5.1); Sodium 140 mmol/L (136-145); Total Protein,Serum 7.4 g/dl (6.3-8.2); Triglycerides 90 mg/dl (30-150); VLDL Cholesterol 18 mg/dL (0-40)
[2022-06-24 19:29] LABS: Direct LDL Cholesterol 59.27 mg/dL (100-129)
[2022-06-24 19:35] LABS: 25-OH Vitamin D, Total 35.9 ng/mL (30-100)
[2022-06-24 19:48] LABS: Thyroid Stimulating Hormone 1.22 uIU/mL (0.465-4.68)
[2022-06-24 19:51] LABS: Iron 53 ug/dL (37-170)
[2022-06-24 20:01] LABS: Total Iron Binding Capacity 370 ug/dL (265-497)
[2022-06-24 20:23] LABS: Vitamin B12 514 pg/mL (239-931)
[2022-06-24 20:28] LABS: Ferritin 9.85 ng/ml (11.1-264)
== END ==
PROVIDERS: Visit Provider Physician Assistant
DX: Z00.00 Encounter for general adult medical examination without abnormal findings (principal); D50.9 Iron deficiency anemia, unspecified; E66.01 Morbid (severe) obesity due to excess calories; Z68.42 Body mass index [BMI] 45.0-49.9, adult
CPT/HCPCS: 80053; 80061; 82306; 82607; 82728; 82746; 83540; 83550; 84443; 85025

== ENCOUNTER → 2022-07-10 10:27 | Outpatient (CLI) | payer OTHER, SELFPAY | PROVIDERS: PCP Physician Assistant; Visit Provider Emergency Medicine | DX: U07.1 COVID-19 (principal) | CPT/HCPCS: C9803; U0003; U0005 ==

== ENCOUNTER → 2022-10-14 14:14 | Outpatient (CLI) | payer OTHER, SELFPAY | PROVIDERS: PCP Physician Assistant; Visit Provider Physician Assistant | DX: N39.0 Urinary tract infection, site not specified (principal) | CPT/HCPCS: 87086 ==

== ENCOUNTER 2023-09-17 13:14 | Outpatient (RCR) | payer OTHER, SELFPAY | END 2023-09-17 14:00 | disposition home or self-care (01) | LOC: OT 13:14 | PROVIDERS: Visit Provider Internal Medicine | DX: M18.11 Unilateral primary osteoarthritis of first carpometacarpal joint, right hand (principal) ==

== ENCOUNTER 2024-04-29 11:09 | Outpatient (CLI) | payer OTHER, SELFPAY | END 2024-04-29 23:59 | disposition home or self-care (01) | LOC: LAB.DROPOF 05-02 11:10 | PROVIDERS: Visit Provider Family Medicine | DX: N39.0 Urinary tract infection, site not specified (principal) | CPT/HCPCS: 87086 ==

== ENCOUNTER 2024-06-23 08:00 | Outpatient (RCR) | payer OTHER, SELFPAY ==
--- NOTE | 2024-06-07 09:24 | HMH.PTOPEV ---
PT Outpatient Evaluation Rehab PT Outpatient Evaluation Start: 06/07/24 07:47 Freq: Status: Active Protocol: Document 06/07/24 07:47 ANUP (Rec: 06/07/24 08:57 ANUP [email or web address]) E-signed By Gloria Rodriguez, PT Outpatient Therapy Subjective History Subjective History This is an initial physical therapy evaluation for Radha Santacruz who presents with referral for LBP. Pt with complaints of R-sided LBP that radiates down into her hip and knee. Pt reports some numbess, tingling, and weakness in RLE. Pt reports these symptoms began about 4 years ago but it has gotten worse in the past 2 months. Denies any know injury but reports heavy lifting is sometimes required to care for her . Pt reports her pain goes from a dull ache to a sharp pain when driving/ sitting long, negotiating stairs, and standing/walking long periods. Pt reports she takes prescription pain meds but they provide only minimal and temporary relief. Pt also with history of injections with minimal relief. Pt reports she has a nerve conduction test scheduled for next month. Pt reports her hip pain can be more severe than her LBP. PMH: HTN, hypothyroidism, MARCO A, HLD, GERD. Lumbar x-ray impression: Moderate degenerative changes without fracture. Hip x-ray: Moderate degenerative changes. New diagnosis of cancer in past 12 No months? Chief Complaint Pain Symptom Type Sharp,Dull,Shooting Symptoms Relieved By Rest/Positioning,Prescription Meds Symptoms Aggravated By Sitting,Standing,Bending/ Stooping,Physical Activity, Walking,Lifting Prior Functional Limitations None Current Functional Limitations Lifting,Housework,Desk Work/ Reading,Driving,Sleeping, Standing,Sitting,Squatting, Recreation Activity,Walking, Stairs,Balance Symptom Description Constant but Variable Level of pain today (0-10) 5 Pain scale - at its best (0-10) 2 Pain scale - at its worst (0-10) 10 Lumbopelvic Eval Posture Lumbar Spine Posture Standing Position Flattened Assistive device Assistive Devices None / NA Gait Observation General Gait Pattern Observation Antalgic Gait Palapation tenderness right thoracic spinal tenderness No lumbar spinal tenderness Yes: 2/4 TTP paraspinal tenderness Yes: 2/4 TTP buttock tenderness Yes: 2/4 TTP Lumbar/Sacral Palpation Findings Tenderness Accessory Movement T-spine Vertebrae Accessory Movements Central P/A [place] that Elicit Symptoms L3 bilateral L4 bilateral L5 bilateral Range of Motion Lumbar Spine Active Flexion Range of 70, painfree Motion (degrees) Lumbar Spine Active Extension Range of 13, painful Motion (degrees) Left Lumbar Spine Lateral Flexion Active 25, painful Range of Motion (degrees) Right Lumbar Spine Lateral Flexion 27, painful Active Range of Motion (degrees) Lumbar Spine ROM Limitations Pain Manual Muscle Test Left Knee Extension Strength Grade 4 Good Knee Flexion Strength Grade 4 Good Hip Flexion Strength Grade 4 Good Hip Abduction Strength Grade 4 Good Hip Adduction Strength Grade 4 Good Right Knee Extension Strength Grade 4- Good- Knee Flexion Strength Grade 4- Good- Hip Flexion Strength Grade 3 Fair Hip Abduction Strength Grade 3+ Fair+ Hip Adduction Strength Grade 4- Good- Hip External Rotation Strength Grade 4- Good- Hip Internal Rotation Strength Grade 4- Good- Special Tests Lumbar Spine Screen Positive Hip Scouring (Quadrant) Test Positive Right Hip Dinesh (ELIO) Test Positive Right Sciatic Nerve Tension Test Negative Left,Positive Right Sacroiliac Joint Compression Test Positive Right Oswestry Index Section 1 Pain Intensity The pain comes and goes and is severe Section 2 Personal Care (Washing,Dresing) increase the pain, but I manage not to change my way of doing it Section 3 Lifting I can only lift very light weights at most Section 4 Walking I have some pain when walking but it does not increase with distance Section 5 Sitting Pain prevents me from sitting for more than 1/2 hour Section 6 Standing I cannot stand more than 1/2 hour without increasing pain Section 7 Sleeping Because of my pain, my normal night's sleep is less than 4 hours Section 8 Social Life My social life is normal but increases the degree of pain Section 9 Traveling Pain restricts me to short necessary journeys under 30 minutes Section 10 Changing Degreee of Pain My pain is gradually getting worse Score and Risk Level Oswestry Sc 30 Oswestry Risk Level Severe Disability Outpatient Therapy Assessment Impairments Problems/Impairmments Palpation Tenderness,Impaired Range of Motion,Impaired Strength,Impaired Transfers, Impaired Gait Pattern,Impaired Walking,Impaired Standing, Impaired Sitting,Impaired Driving,Impaired Lifting, Impaired Household Care, Impaired Stair Climbing, Impaired Stepping on Uneven Surface,Impaired Squatting, Impaired Bending,Impaired Recreational Activities, Subjective C/O Pain Prognosis Rehab Potential Good Comment Pt presents with LBP and R hip pain. Pt is primarily limited by her R hip pain. Pt with limited LB/hip ROM, impaired R LE strength, and worsening subjective c/o pain. PT to treat LBP and refer to MD for further imaging of hip and LB if symptoms persist or worsen. Clinical Impression Consistent with Diagnosis Yes Short Term Goals Number of Weeks 4 Increase Strength Yes: Improve right hip flexion MMT to 4/5 to improve functional tasks. Improve Oswestry Score Yes: Improve by 4 points to decrease disability. Decrease Subjective C/O Pain Yes: At worst pain 8/10 to decrease symptom severity Patient to be Ind w/ HEP Yes: Verbalize adherence to HEP Property Supervisor Goals Number of Weeks 8 Decreased Palpation Tenderness Yes: 0/4 TTP lumbar paraspinals to decrease symptom irritability. Increase Range of Motion Yes: Improve Lumbar ROM to WNL all planes and painfree to max daily function Increase Strength Yes: RLE MMT 4+/5 LLE 5/5 to increase functional strength Improve Oswestry Score Yes: Decrease to score reflecting moderate disability to improve QOL. Decrease Subjective C/O Pain Yes: At worst pain decrease to 5/10 to improve QOL Patient to be Ind w/ Advanced HEP Yes Outpatient Therapy Plan of Care Treatment Plan May Include Therapeutic Exercise Including Home Yes Exercise Program Manual Therapy Techniques Yes Neuromuscular Re-education Yes Therapeutic Activities to Return to Yes Previous Functional/Work Level Gait Training Yes ADL/Self Care Education Yes Mechanical Traction Yes Dry Needling Yes Thermal Modalities Yes Electrical Stimulation Yes Ultrasound/Phonophoresis Yes Iontophoresis Yes Orthotics/Bracing/Splinting Yes Massage Yes Eval/Re-Eval Yes Frequency Times per week 2x Duration Number of Weeks 6-8 weeks Addendums This patient is a candidate for social No or vocational rehab? Patient/Guardian verbally acknowledges Yes understanding of treatment program and consents to further treatment? Patient/Guardian verbally acknowledges Yes understanding of diagnosis, prognosis and goals for treatment? Eval Complexity PT Charges 77253 - Moderate Complexity Shoulder/Elbow Eval Shoulder Objective Measurements Elbow Objective Measurements PHYSICIAN CERTIFICATION: I certify the specified therapy services for Radha Santacruz are required, authorized, and reviewed every 30 days.
== END 2024-06-23 23:59 | disposition home or self-care (01) ==
LOC: PT 08:00
PROVIDERS: Visit Provider Physician Assistant
DX: M54.50 Low back pain, unspecified (principal)
CPT/HCPCS: 97010; 97014; 97110; 97163; G0283

== ENCOUNTER 2024-06-23 18:27 | Outpatient (CLI) | payer OTHER, SELFPAY ==
[2024-06-23 12:48] LABS: Anion Gap 13.1 mEq/L (5-15); Blood Urea Nitrogen 12 mg/dl (7-17); Calcium 9.2 mg/dl (8.4-10.2); Carbon Dioxide 24 mmol/L (22.0-30.0); Chloride 108 mmol/L (98-107); Estimated Glomerular Filt Rate 56 ml/min (>60); GFR (African American) 68 ML/MIN (>60); Glucose 89 mg/dl (74-100); Potassium 4.1 mmoL/L (3.5-5.1); Sodium 141 mmol/L (136-145)
== END 2024-06-23 23:59 | disposition home or self-care (01) ==
LOC: LAB.DROPOF 18:28
PROVIDERS: PCP Physician Assistant; Visit Provider Physician Assistant
DX: N18.31 Chronic kidney disease, stage 3a (principal)
CPT/HCPCS: 80048

== ENCOUNTER 2024-09-29 07:53 | Outpatient (CLI) | payer OTHER, SELFPAY ==
--- NOTE | 2024-09-29 07:57 | MM_ITS ---
PROCEDURE INFORMATION: Exam: MG Bilateral Screening 3D Mammography Exam date and time: 09/29/2024 7:48 AM Age: 64 years old Clinical indication: Screening examination TECHNIQUE: Imaging protocol: Bilateral Screening tomosynthesis and 2D mammography including computer-aided detection (CAD) when performed. COMPARISON: 1. MG MM DIG SCREENING MAMM BI W/CAD 03/11/2022 10:16 AM 2. MG MM DIG SCREENING MAMM BI W/CAD 09/26/2020 9:56 AM FINDINGS: MAMMOGRAPHY: Breast composition: There are scattered areas of fibroglandular density. Mass: None. Architectural distortion: None. Calcifications: No suspicious calcifications. Asymmetric density: None. Skin thickening: None. Axillary adenopathy: None. IMPRESSION: No mammographic evidence of malignancy. Annual screening is recommended unless otherwise clinically indicated. ASSESSMENT: BI-RADS Category 1: Negative.
== END 2024-09-29 23:59 | disposition home or self-care (01) ==
LOC: RAD 07:53
PROVIDERS: PCP Physician Assistant; Visit Provider Physician Assistant
DX: Z12.31 Encounter for screening mammogram for malignant neoplasm of breast (principal)
CPT/HCPCS: 77063; 77067